=== PATIENT | female | born 1950 | race Caucasian/White ===

== ENCOUNTER 2019-11-14 08:44 | Outpatient (CLI) | payer OTHER, SELFPAY ==
--- NOTE | ~2019-11-14 | MM_ITS ---
EXAMINATION: MM screening [facility] BI w antoine HISTORY: Screening mammogram TECHNIQUE: Craniocaudal and mediolateral oblique 3-D tomosynthesis images were obtained and synthetic 2-D images were generated. CAD analysis was submitted and interpreted. COMPARISON: Comparison to multiple prior studies sequentially, with oldest reviewed study dated 10/14. BREAST PARENCHYMAL COMPOSITION: There are scattered areas of fibroglandular density. FINDINGS: There is no evidence of suspicious mass, calcification, or architectural distortion to sugg est malignancy in either breast. There has been no suspicious interval change. IMPRESSION: 1. No mammographic evidence of malignancy. 2. Recommend routine screening mammography in one year. BI-RADS Category 1: Negative Reviewed, dictated and finalized at location A. LE OPERATOR
--- NOTE | ~2019-11-14 | DEXA_ITS ---
Bone Density Report Name: Maritza Bhatia Age: 69 Sex: Female Ethnicity: White Date of : 1950 Indication: osteopenia; prior fracture; cancer; asthma or emphysema; hysterectomy; Referring Provider: Klarissa Guadarrama Study: Bone densitometry was performed. Exam Date: November 14, 2019 Accession number: [id number] Bone Density: Region BMD T-score Z-score Classification AP Spine (L1-L4) 0.835 -1.9 0.0 Osteopenia Femoral Neck (Left) 0.683 -1.5 0.2 Osteopenia Total Hip (Left) 0.984 0.3 1.7 Normal Total Hip Bilateral Avg 0.954 0.1 1.5 Normal Femoral Neck (Right) 0.691 -1.4 0.2 Osteopenia Total Hip (Right) 0.922 -0.2 1.2 Normal World Health Organization criteria for BMD impression classify patients as: Normal (T-score at or above -1.0), Osteopenia (T-score between -1.0 and -2.5), or Osteoporosis (T-score at or below -2.5). 10-year Fracture Risk(1): Major Osteoporotic Fracture 15% Hip Fracture 1.8% Reported Risk Factors: [place] (), Neck BMD=0.683, BMI=28.6, previous fracture (1) FRAX(R) Version 3.08. Fracture probability calculated for an untreated patient. Fracture probability may be lower if the patient has received treatment. Previous Exams: Region Exam Age BMD T-score BMD Change BMD Change Date g/cm2 vs Baseline vs Previous AP Spine(L1-L4) 11/14/2019 69 0.835 -1.9 -0.262(-23.9%) -0.070(-7.7%)* 10/14/2014 64 0.905 -1.3 -0.192(-17.5%) -0.018(-2.0%)# 09/18/2012 62 0.923 -1.1 -0.174(-15.8%) -0.080(-8.0%)# 08/31/2010 60 1.003 -0.4 -0.094(-8.6%)* -0.020(-1.9%) 08/07/2007 57 1.022 -0.2 -0.074(-6.8%)* -0.074(-6.8%)* 06/28/2005 55 1.097 0.5 Total Hip(Left) 11/14/2019 69 0.984 0.3 -0.061(-5.9%)# 0.013(1.3%) 10/14/2014 64 0.971 0.2 -0.074(-7.1%)# 0.031(3.4%)# 09/18/2012 62 0.940 0.0 -0.106(-10.1%) -0.029(-3.0%)# 08/31/2010 60 0.969 0.2 -0.077(-7.3%)* -0.012(-1.2%) 08/07/2007 57 0.980 0.3 -0.065(-6.2%)* -0.065(-6.2%)* 06/28/2005 55 1.045 0.8 Total Hip(Right) 11/14/2019 69 0.922 -0.2 -0.141(-13.3%) -0.029(-3.1%)* 10/14/2014 64 0.952 0.1 -0.112(-10.5%) 0.028(3.0%)# 09/18/2012 62 0.924 -0.2 -0.140(-13.2%) -0.050(-5.1%)# 08/31/2010 60 0.973 0.3 -0.090(-8.5%)* -0.028(-2.8%)* 08/07/2007 57 1.001 0.5 -0.063(-5.9%)* -0.063(-5.9%)* 06/28/2005 55 1.064 1.0 *Denotes significance at 95% confidence level, LSC for AP Spine = 0.022 g/cm2, LSC for Total Hip = 0.027 g/cm2 Clinical Information Provided by Patient:
== END 2019-11-14 08:45 | disposition home or self-care (01) ==
PROVIDERS: PCP Family Medicine; Visit Provider Student in an Organized Health Care Education/Training Program
DX: Z12.31 Encounter for screening mammogram for malignant neoplasm of breast (principal); Z78.0 Asymptomatic menopausal state; M85.88 Other specified disorders of bone density and structure, other site; M85.852 Other specified disorders of bone density and structure, left thigh; M85.851 Other specified disorders of bone density and structure, right thigh
CPT/HCPCS: 77063; 77067; 77080

== ENCOUNTER 2020-07-10 07:18 | Outpatient (CLI) | payer OTHER, SELFPAY ==
[2020-07-10 19:02] LABS: SARS-CoV-2 RNA PCR Negative
== END 2020-07-10 07:19 | disposition home or self-care (01) ==
LOC: ANHCOVIDDT 07:19
PROVIDERS: PCP Family Medicine; Visit Provider Internal Medicine Gastroenterology
DX: Z01.812 Encounter for preprocedural laboratory examination (principal); Z20.828 Contact with and (suspected) exposure to other viral communicable diseases
CPT/HCPCS: 87635; C9803; U0003

== ENCOUNTER 2020-07-12 01:23 | Day surgery (SDC) | payer OTHER, SELFPAY ==
[2020-07-04 15:03] VITALS: BMI 27.6
[2020-07-12 09:08] VITALS: BP 166/77; PULSE 85; RESP 16; TEMP 37.1; O2SAT 100
[2020-07-12] MEDS: LACTATED RINGERS 1,000 ML 150 ML IV CONT (09:11)
[2020-07-12 09:15] LABS: Glucose Point of Care 174 (65-105)
--- NOTE | 2020-07-12 10:01 | WPDGICN ---
Assessment and Plan Assessment and plan (1) History of colon cancer: Code(s): Z85.038 - Personal history of other malignant neoplasm of large intestine Status: Acute Assessment and Plan: patient has a history of colon cancer resected 2012. Patient presents today for surveillance examination. This required at 3 a year intervals at this time. GI Consult Note Consult date/time: 07/12/20 10:01 HPI: Maritza Bhatia is a 70 year old female Seen in evaluation at the request of Dr. Roberson. patient has a history of colon cancer resected in 2012. patient currently doing well with normal weight appetite bowel movements. She denies any bleeding. Follow-up colonoscopy 2017 revealed several hyperplastic colon polyps. Patient presents today for follow-up examination. Her current weight of a tight bowel movements are normal. Review of Systems Review of Systems: All systems reviewed & are unremarkable except as noted in HPI and below PMFSH Past Medical History Medical History Advance care planning Asthma Cancer, colon 2012 Cataracts, bilateral 2017 Diabetes Dyslipidemia Environmental allergies History of colon cancer HTN (hypertension) Hypokalemia Surgical History Surgical History (Updated 06/28/20 @ 11:05 by Calixto Roberson MD) H/O hernia repair incisional hernia 2014 History of partial colectomy 06/2013 History of tonsillectomy Hx of cataract surgery Hx of hysterectomy 1996 Family History Family History Mother Family history of Parkinson's disease, Onset Age: 72 Cerebrovascular accident Father Carcinoma of colon, Onset Age: 40 Family history of primary malignant neoplasm of liver, Onset Age: 40 Other Family history of lymphoma Social History Social History Smoking status: Never smoker Second hand tobacco smoke exposure: No Alcohol intake: never Living arrangements: with family Gender identity (if verbalized by the patient): Female Spiritual care concerns: No Meds Home Medications and Allergies Home Medications Medication Instructions Recorded Confirmed Type ascorbic acid (vitamin C) 500 mg 500 mg PO DAILY 08/26/19 07/04/20 History tablet,extended release calcium carbonate 600 mg calcium 600 mg PO DAILY 08/26/19 07/04/20 History (1,500 mg) tablet cod liver oil 1 cap PO DAILY 08/26/19 07/04/20 History cyanocobalamin (vitamin B-12) 500 500 mcg PO DAILY 08/26/19 07/04/20 History mcg tablet omega-3 fatty acids 1,000 mg 1,000 mg PO DAILY 08/26/19 07/04/20 History capsule blood sugar diagnostic #100 each 10/17/19 06/28/20 Rx blood-glucose meter #1 each 10/17/19 06/28/20 Rx lancets 33 gauge #100 each 10/17/19 06/28/20 Rx quinapril 40 mg tablet 40 mg PO DAILY #90 tablet 02/06/20 07/04/20 Rx escitalopram oxalate 10 mg tablet 10 mg PO DAILY #90 tablet 02/29/20 07/04/20 Rx simvastatin 20 mg tablet 20 mg PO DAILY #90 tablet 03/08/20 07/04/20 Rx fluticasone 250 mcg-salmeterol 50 1 inhalation INHALATION BID #90 04/10/20 07/04/20 Rx mcg/dose blistr powdr for each inhalation glipizide 2.5 mg tablet, extended 2.5 mg PO DAILY #90 tablet 06/18/20 07/04/20 Rx release 24 hr metformin 1,000 mg tablet 1,000 mg PO BID #180 tablet 06/18/20 07/04/20 Rx albuterol sulfate 90 mcg/actuation 2 inh INHALATION Q4H #18 g 06/28/20 07/04/20 Rx aerosol inhaler diltiazem HCl 60 mg 60 mg PO BID cap 06/28/20 07/04/20 History capsule,extended release 12 hr hydrochlorothiazide 25 mg tablet 25 mg PO DAILY #90 tablet 06/28/20 07/04/20 Rx potassium chloride 20 mEq 20 meq PO DAILY tablet 06/28/20 07/04/20 History tablet,extended release montelukast 10 mg tablet 10 mg PO DAILY #90 tablet 07/10/20 Rx Allergies Allergy/AdvReac Type Severity Reaction Status Date / Time adhesive Al
--- NOTE | 2020-07-12 10:03 | WPDANESEPPF ---
Anes - Initial Pre Proc Eval Procedure: Operation Date: 07/12/20 10:00 Proposed Procedures p Screening Colonoscopy - Ar Gao MD Date/Time: 07/12/20 10:03 Surgeon: Ar Gao MD Pre Op Diagnosis: hx colon CA Patient Data Age: 70 Gender: F Height: 5 ft 4 in Weight: 72.6 kg Last Vital Signs Temp 98.8 F 07/12/20 09:08 Pulse 85 07/12/20 09:08 Resp 16 07/12/20 09:08 BP 166/77 H 07/12/20 09:08 Pulse Ox 100 07/12/20 09:08 Allergies Allergy/AdvReac Type Severity Reaction Status Date / Time adhesive Allergy Intermediate SURGICAL Verified 07/12/20 09:07 TAPE Cephalosporins Allergy Intermediate RASH AND Verified 07/12/20 09:07 ITCHING clarithromycin Allergy Intermediate RASH AND Verified 07/12/20 09:07 ITCHING doxycycline Allergy Intermediate RASH Verified 07/12/20 09:07 erythromycin base Allergy Intermediate RASH AND Verified 07/12/20 09:07 ITCHING Quinolones Allergy Intermediate RASH AND Verified 07/12/20 09:07 ITCHING ciprofloxacin Allergy Unknown RASH/ITICHI Verified 07/12/20 09:07 NG Penicillins Allergy Unknown HIVES Verified 07/12/20 09:07 tetracycline Allergy Unknown RASH Verified 07/12/20 09:07 RESPIRATIORY ISSUES ibuprofen Allergy Rash Verified 07/12/20 09:07 SWEET POTATOES Allergy Intermediate HIVES Uncoded 07/04/20 14:57 CEPHALEXIN MONOHYDRATE AdvReac Unknown NAUSEA/VOMI Uncoded 07/04/20 14:57 TING pomegranate juice AdvReac Unknown Unknown Uncoded 07/04/20 14:57 Soy Milk AdvReac Unknown COUNTERACTS Uncoded 07/04/20 14:57 WITH ASTHMA MEDICINE Home Medications Medication Instructions Recorded Confirmed Type ascorbic acid (vitamin C) 500 mg 500 mg PO DAILY 08/26/19 07/04/20 History tablet,extended release calcium carbonate 600 mg calcium 600 mg PO DAILY 08/26/19 07/04/20 History (1,500 mg) tablet cod liver oil 1 cap PO DAILY 08/26/19 07/04/20 History cyanocobalamin (vitamin B-12) 500 500 mcg PO DAILY 08/26/19 07/04/20 History mcg tablet omega-3 fatty acids 1,000 mg 1,000 mg PO DAILY 08/26/19 07/04/20 History capsule blood sugar diagnostic #100 each 10/17/19 06/28/20 Rx blood-glucose meter #1 each 10/17/19 06/28/20 Rx lancets 33 gauge #100 each 10/17/19 06/28/20 Rx quinapril 40 mg tablet 40 mg PO DAILY #90 tablet 02/06/20 07/04/20 Rx escitalopram oxalate 10 mg tablet 10 mg PO DAILY #90 tablet 02/29/20 07/04/20 Rx simvastatin 20 mg tablet 20 mg PO DAILY #90 tablet 03/08/20 07/04/20 Rx fluticasone 250 mcg-salmeterol 50 1 inhalation INHALATION BID #90 04/10/20 07/04/20 Rx mcg/dose blistr powdr for each inhalation glipizide 2.5 mg tablet, extended 2.5 mg PO DAILY #90 tablet 06/18/20 07/04/20 Rx release 24 hr metformin 1,000 mg tablet 1,000 mg PO BID #180 tablet 06/18/20 07/04/20 Rx albuterol sulfate 90 mcg/actuation 2 inh INHALATION Q4H #18 g 06/28/20 07/04/20 Rx aerosol inhaler diltiazem HCl 60 mg 60 mg PO BID cap 06/28/20 07/04/20 History capsule,extended release 12 hr hydrochlorothiazide 25 mg tablet 25 mg PO DAILY #90 tablet 06/28/20 07/04/20 Rx potassium chloride 20 mEq 20 meq PO DAILY tablet 06/28/20 07/04/20 History tablet,extended release montelukast 10 mg tablet 10 mg PO DAILY #90 tablet 07/10/20 Rx Laboratory Tests 07/12/20 09:12 POC Capillary Glucose 174 mg/dl H mg/dl (65-105) Patient hx anesthesia problems: none Family hx anesthesia problems: none PMFSH Past Medical History Medical History Advance care planning Asthma Cancer, colon 2013 Cataracts, bilateral 2018 Diabetes Dyslipidemia Environmental allergies History of colon cancer HTN (hypertension) Hypokalemia Surgical History Surgical History (Updated 06/28/20 @ 11:05 by Calixto Roberson MD) H/O hernia repair incisional hernia 2014 History of partial colectomy 06/2013 History of tonsillectomy Hx of cataract surgery Hx of
[2020-07-12 10:55] VITALS: BP 114/67; PULSE 83; RESP 16; O2SAT 97
[2020-07-12 11:05] VITALS: BP 127/71; PULSE 79; RESP 16; O2SAT 97
[2020-07-12 11:15] VITALS: BP 142/76; PULSE 71; RESP 18; O2SAT 100
== END 2020-07-12 11:15 | disposition home or self-care (01) ==
PROVIDERS: PCP Family Medicine; Visit Provider Internal Medicine Gastroenterology
PROC: 0DJD8ZZ Inspection of Lower Intestinal Tract, Via Natural or Artificial Opening Endoscopic (ICD-10-PCS; CPT 45378; principal; 2020-07-12 10:00)
DX: Z12.11 Encounter for screening for malignant neoplasm of colon (principal); D12.8 Benign neoplasm of rectum; J45.909 Unspecified asthma, uncomplicated; E78.5 Hyperlipidemia, unspecified; I10 Essential (primary) hypertension; Z90.49 Acquired absence of other specified parts of digestive tract; K64.8 Other hemorrhoids
CPT/HCPCS: 45385; 88305; J2704; J7120

== ENCOUNTER 2020-07-16 13:49 | Outpatient (CLI) | payer OTHER, SELFPAY ==
--- NOTE | 2020-07-16 14:21 | ECHO_ITS ---
Patient Info Name: Maritza Bhatia Age: 70 years : 1950 Gender: Female Ht: 64 in Wt: 160 lbs BSA: 1.83 m2 HR: 88 bpm BP: 157 / 96 mmHg Heart Rhythm: Sinus Rhythm Technical Quality: Fair Exam Date: 07/16/2020 2:55 PM Exam Location: [facility] Patient Status: Outpatient Admit Date: 07/16/2020 Staff Ordering Physician: Calixto Roberson MD Concrete Crusher Loader Operator: Javier Gutierrez, MERLY, RT Attending Provider: Calixto Roberson MD Exam Type: CA echo dop color flow w con Study Info Indications R01.1 - Cardiac murmur, unspecified Complete two-dimensional, color flow and Doppler transthoracic echocardiogram is performed. Strain analysis performed. History/Risk Factors Murmur. Summary 1. Complete two-dimensional, color flow and Doppler transthoracic echocardiogram is performed. 2. Left ventricular chamber dimension is normal. 3. Left ventricular systolic function is normal, estimated at 60-65%. 4. The left ventricular diastolic function is grade I diastolic dysfunction. 5. E/e' 9 is minimally elevated. 6. Global longitudinal strain is normal at -18.3%. 7. Left atrial chamber dimension is mildly enlarged. 8. There is moderate aortic valve sclerosis. 9. There is mild aortic valve stenosis with a peak velocity of 208.77 cm/s, mean gradient of 9 mmHg, and aortic valve area of 1.64 cm2. 10. The mitral valve has mildly calcified annulus. Left Ventricle E/e' 9 is minimally elevated. Global longitudinal strain is normal at -18.3%. Left ventricular chamber dimension is normal. Left ventricular systolic function is normal, estimated at 60-65%. The left ventricular diastolic function is grade I diastolic dysfunction. Right Ventricle Right ventricular chamber dimension is normal. Right ventricular systolic function is normal. Left Atria Left atrial chamber dimension is mildly enlarged. Right Atria Right atrial chamber dimension is normal. Aortic Valve The aortic valve is trileaflet. There is moderate aortic valve sclerosis. There is mild aortic valve stenosis with a peak velocity of 208.77 cm/s, mean gradient of 9 mmHg, and aortic valve area of 1.64 cm2. There is no aortic valve regurgitation. Pulmonic Valve There is no pulmonic regurgitation. Mitral Valve The mitral valve has mildly calcified annulus. There is no mitral valve stenosis. There is no mitral valve regurgitation. Tricuspid Valve There is no tricuspid valve regurgitation. Pericardium/Pleural There is no pericardial effusion. Inferior Vena Cava Normal inferior vena cava with >50% collapse upon inspiration consistent with normal right atrial pressure, 5 mmHg. Aorta The aortic root size at the sinus of Valsalva is normal. Left Ventricular Outflow Tract Name Value Normal LVOT 2D LVOT Diameter 2.04 cm LVOT Doppler LVOT Peak Gradient 4 mmHg LVOT Mean Gradient 2 mmHg LVOT VTI 21.38 cm LVOT VTI/AV VTI Ratio 0.50 LVOT Stroke Volume 69.71 ml LVOT CO
== END 2020-07-16 13:50 | disposition home or self-care (01) ==
PROVIDERS: PCP Family Medicine; Visit Provider Family Medicine
DX: R01.1 Cardiac murmur, unspecified (principal); I35.1 Nonrheumatic aortic (valve) insufficiency
CPT/HCPCS: 93306

== ENCOUNTER 2020-11-16 09:54 | Outpatient (CLI) | payer OTHER, SELFPAY ==
--- NOTE | ~2020-11-16 | MM_ITS ---
EXAMINATION: MM screening [facility] BI w antoine HISTORY: Screening mammogram TECHNIQUE: Craniocaudal and mediolateral oblique 3-D tomosynthesis images were obtained and synthetic 2-D images were generated. CAD analysis was submitted and interpreted. COMPARISON: Prior mammograms dating back to 10/14/2014 BREAST PARENCHYMAL COMPOSITION: There are scattered areas of fibroglandular density. FINDINGS: There is no evidence of suspicious mass, calcification, or architectural distortion to sugg est malignancy in either breast. There has been no suspicious interval change. IMPRESSION: 1. No mammographic evidence of malignancy. 2. Recommend routine screening mammography in one year. BI-RADS Category 1: Negative Reviewed, dictated and finalized at location A. BENDER
== END 2020-11-16 09:55 | disposition home or self-care (01) ==
LOC: ANHIMG 09:56
PROVIDERS: PCP Family Medicine; Visit Provider Student in an Organized Health Care Education/Training Program
DX: Z12.31 Encounter for screening mammogram for malignant neoplasm of breast (principal)
CPT/HCPCS: 77063; 77067

== ENCOUNTER 2021-03-26 13:03 | Outpatient (CLI) | payer OTHER, SELFPAY ==
--- NOTE | ~2021-03-26 | XR_ITS ---
XR chest 2V DATE: 03/26/2021 13:21 INDICATION: Cough TECHNIQUE: PA and lateral views COMPARISON: 09/17/2016 PA and lateral views FINDINGS: Normal heart size. There is aortic arch calcification. No hilar or mediastinal enlargemen t. No pulmonary infiltrate or consolidation, pulmonary vascular congestion or pleural effusion or pn eumothorax. Osteopenia. Mild degenerative change of the thoracic spine. IMPRESSION: No active cardiopulmonary disease Reviewed, dictated and finalized at location A.
== END 2021-03-26 13:04 | disposition home or self-care (01) ==
PROVIDERS: PCP Family Medicine; Visit Provider Otolaryngology
DX: R05 Cough (principal)
CPT/HCPCS: 71046

== ENCOUNTER 2021-12-05 14:11 | Outpatient (CLI) | payer OTHER, SELFPAY ==
--- NOTE | ~2021-12-05 | XR_ITS ---
EXAMINATION: XR chest 2V 12/05/2021 14:24 INDICATION: Cough and sore throat. Asthma. PROCEDURE: 2 view chest COMPARISON: Comparison to multiple prior studies sequentially, with oldest reviewed study dated 09/07/2005. FINDINGS: The lungs are clear. The cardiomediastinal silhouette is within normal limits. There are no pleural effusions. There is no pneumothorax suspected. IMPRESSION: 1: NO ACUTE CARDIOPULMONARY DISEASE. Reviewed, dictated and finalized at location B.
== END 2021-12-05 14:12 | disposition home or self-care (01) ==
LOC: ANHIMG 14:13
PROVIDERS: PCP Family Medicine; Visit Provider Nurse Practitioner Family
DX: R05.9 Cough, unspecified (principal); J02.9 Acute pharyngitis, unspecified; J45.909 Unspecified asthma, uncomplicated
CPT/HCPCS: 71046

== ENCOUNTER 2021-12-06 18:19 | Emergency (ER) | payer OTHER, SELFPAY ==
[2021-12-06] VITALS (15 sets, daily range): BP systolic 146–171; BP diastolic 66–89; PULSE 76–101; RESP 14–20; TEMP 36.4–36.5; O2SAT 97–100
--- NOTE | ~2021-12-06 | XR_ITS ---
XR chest 2V DATE: 12/06/2021 18:46 INDICATION: Cough, shortness of breath, congestion for one week. History of asthma and hypertension. TECHNIQUE: PA and lateral views COMPARISON: 12/05/2021 2 view chest FINDINGS: The patient is rotated. Heart size appears normal. No hilar or mediastinal enlargement is evident. The lungs are clear of inf iltrate or consolidation. No pleural effusion or pulmonary vascular congestion or pneumothorax. Osteopenia. IMPRESSION: No active cardiopulmonary disease or significant change since 12/05/2021 Reviewed, dictated and finalized at location A. IMPRESSION: No active cardiopulmonary disease or significant change since 2021
--- NOTE | 2021-12-06 18:32 | ECG_ITS ---
Measurements Intervals [place] Rate: 86 P: 39 RI: 134 QRS: 15 QRSD: 82 T: 46 QT: 362 QTc: 433 Interpretive Statements SINUS RHYTHM WITH FREQUENT SUPRAVENTRICULAR PREMATURE COMPLEXES ABNORMAL ECG NO PREVIOUS ECG AVAILABLE FOR COMPARISON Electronically Signed On 12-07-2021 9:24:22 CDT by Jesus Cohen M.D.
--- NOTE | 2021-12-06 18:39 | PC.NURSE ---
pt to Xray at this time.
[2021-12-06 19:02] LABS: Basophils Percent Auto 0.1 % (0.2-1.2); Hematocrit 37.6 % (37.0-47.0); Hemoglobin 11.5 g/dL (12.0-15.0); Immature Granulocyte Absolute 0.12 K/mm3 (0.00-0.031); Immature Granulocyte Percent A 1.4 % (0-0.5); Lymphocytes Absolute Auto 1.47 K/mm3 (0.9-3.2); Lymphocytes Percent Auto 17.2 % (18.3-44.2); Mean Corpuscular HGB Conc 30.6 g/dl (32-36); Mean Corpuscular Hemoglobin 23.3 pg (26-34); Mean Corpuscular Volume 76.3 fl (80-100); Mean Platelet Volume 9.4 fl (7.4-10.4); Monocytes Absolute Auto 0.9 K/mm3 (0.1-0.6); Monocytes Percent Auto 10.1 % (2.6-8.5); Neutrophils Absolute Auto 6.1 K/mm3 (1.3-6.7); Neutrophils Percent Auto 71.2 % (45.5-73.1); Platelet Count Result 343 k/mm3 (150-375); Red Blood Count 4.93 M/mm3 (4.2-5.4); Red Cell Distribution Width 15.5 % (11.5-14.5); White Blood Count 8.6 K/mm3 (4.5-10.0)
[2021-12-06 19:21] LABS: Alanine Aminotransferase 60 U/L (4-35); Albumin Level 4.7 g/dL (3.5-5.1); Alkaline Phosphatase 50 U/L (38-126); Anion Gap 10 mmol/L (8-16); Aspartate Amino Transferase 46 U/L (14-36); Bilirubin,Total < 0.1 mg/dL (0.2-1.3); Blood Urea Nitrogen 17 mg/dL (7-17); Calcium 10.3 mg/dL (8.4-10.2); Carbon Dioxide 26 mmol/L (22-30); Chloride 94 mmol/L (98-107); Estimated CRCL calculation 51 ml/min; Estimated Glomerular Filt Rate > 60; Glucose 279 mg/dL (65-110); Potassium 4.4 mmol/L (3.4-5.0); Sodium 130 mmol/L (137-145)
--- NOTE | 2021-12-06 19:28 | ED.GENADULT ---
HPI - General Adult General Chief complaint: Shortness of Breath/Dyspnea Stated complaint: sob Time Seen by Provider: 12/06/21 19:05 Source: patient History of Present Illness HPI narrative: 71-year-old female presented [facility] for evaluation of cough and shortness of breath that has been ongoing for greater than 1 week. Patient states she went out with friends last Thursday. Patient began having symptoms on Thursday. Patient did have follow-up with her primary care physician and was ultimately started on antibiotics/Levaquin on Thursday. Patient has been taking the antibiotics for approximately 6 days. Patient presents complaining of persistent cough and shortness of breath. Patient reports she is vaccinated against COVID. Patient did have a Covid test that was negative. Patient reports that one of her friends that she went to lunch with also has pneumonia and is currently admitted. Patient denies smoking. Patient is not on oxygen at home. Related Data Home Medications Medication Instructions Recorded Confirmed ascorbic acid (vitamin C) 500 mg 500 mg PO DAILY 08/26/19 12/02/21 tablet,extended release calcium carbonate 600 mg calcium 600 mg PO DAILY 08/26/19 12/02/21 (1,500 mg) tablet cod liver oil 1 cap PO DAILY 08/26/19 12/02/21 cyanocobalamin (vitamin B-12) 500 500 mcg PO DAILY 08/26/19 12/02/21 mcg tablet omega-3 fatty acids 1,000 mg 1,000 mg PO DAILY 08/26/19 12/02/21 capsule primidone 50 mg tablet 50 mg PO BID tablet 06/26/21 12/02/21 simvastatin 20 mg tablet 20 mg PO QHS tablet 06/26/21 12/02/21 gabapentin 300 mg capsule 300 mg PO QHS 09/03/21 12/02/21 Allergies Allergy/AdvReac Type Severity Reaction Status Date / Time adhesive Allergy Intermediate SURGICAL Verified 12/02/21 13:02 TAPE Cephalosporins Allergy Intermediate RASH AND Verified 12/02/21 13:02 ITCHING clarithromycin Allergy Intermediate RASH AND Verified 12/02/21 13:02 ITCHING doxycycline Allergy Intermediate RASH Verified 12/02/21 13:02 erythromycin base Allergy Intermediate RASH AND Verified 12/02/21 13:02 ITCHING ciprofloxacin Allergy Unknown RASH/ITICHI Verified 12/02/21 13:02 NG Penicillins Allergy Unknown HIVES Verified 12/02/21 13:02 tetracycline Allergy Unknown RASH Verified 12/02/21 13:02 RESPIRATIORY ISSUES ibuprofen Allergy Rash Verified 12/02/21 13:02 SWEET POTATOES Allergy Intermediate HIVES Uncoded 10/30/21 10:59 CEPHALEXIN MONOHYDRATE AdvReac Unknown NAUSEA/VOMI Uncoded 10/30/21 10:59 TING pomegranate juice AdvReac Unknown Unknown Uncoded 10/30/21 10:59 Soy Milk AdvReac Unknown COUNTERACTS Uncoded 10/30/21 10:59 WITH ASTHMA MEDICINE Review of Systems Review of Systems: CONSTITUTIONAL: Denies fever, chills, or sweats. EYES: Denies visual changes, redness, or discharge. ENT: Denies rhinorrhea, congestion, sore throat, or otalgia. CARDIOVASCULAR: Denies chest pain, palpitations, or edema. RESPIRATORY: reports cough and dyspnea. GASTROINTESTINAL: Denies abdominal pain, nausea, vomiting, or diarrhea. GENITOURINARY: Denies dysuria or hematuria. SKIN: Denies rash or itching. MUSCULOSKELETAL: Denies back pain, joint pain, or myalgia. NEUROLOGIC: Denies headache, numbness, or weakness. [facility] Past Medical History Medical History Anxiety Asthma Cancer, colon 2013 Cataracts, bilateral 2018 Diabetes Diabetic autonomic neuropathy Dyslipidemia Environmental allergies History of colon cancer HTN (hypertension) Hypokalemia Mild aortic stenosis Osteopenia Surgical History Surgical History H/O hernia repair incisional hernia 2014 History of partial colectomy 06/2013 History of tonsillectomy Hx of cataract surgery Hx of hysterectomy 1996 Family History Family History Mother Family
[2021-12-06] MEDS: ALBUTEROL SULFATE NEB 2.5 MG/0.5 ML INH 5 MG INHALATION (19:33)
[2021-12-06 21:22] LABS: SARS-CoV-2 RNA PCR Negative
[2021-12-07 04:06] LABS: Influenza A QL RT-PCR Negative (Negative); Influenza B QL RT-PCR Negative (Negative)
== END 2021-12-06 22:06 | disposition home or self-care (01) ==
PROVIDERS: Emergency Medicine; Emergency Provider Emergency Medicine; PCP Family Medicine
DX: R05.9 Cough, unspecified (principal); Z20.822 Contact with and (suspected) exposure to COVID-19; E11.43 Type 2 diabetes mellitus with diabetic autonomic (poly)neuropathy; J45.909 Unspecified asthma, uncomplicated; E78.5 Hyperlipidemia, unspecified; I10 Essential (primary) hypertension; I35.0 Nonrheumatic aortic (valve) stenosis; M85.80 Other specified disorders of bone density and structure, unspecified site; Z79.84 Long term (current) use of oral hypoglycemic drugs; Z85.038 Personal history of other malignant neoplasm of large intestine; Z90.49 Acquired absence of other specified parts of digestive tract; Z98.42 Cataract extraction status, left eye; Z98.41 Cataract extraction status, right eye; I49.1 Atrial premature depolarization
CPT/HCPCS: 36415; 71046; 80053; 85025; 87502; 87804; 93005; 94640; 99284; A9270; C9803; U0003; U0005

== ENCOUNTER 2021-12-24 11:04 | Outpatient (CLI) | payer OTHER, SELFPAY ==
[2021-12-24 11:45] LABS: Alanine Aminotransferase 37 U/L (4-35); Alkaline Phosphatase 48 U/L (38-126); Anion Gap 5 mmol/L (8-16); Aspartate Amino Transferase 31 U/L (14-36); Bilirubin,Total 0.3 mg/dL (0.2-1.3); Blood Urea Nitrogen 11 mg/dL (7-17); Calcium 9.3 mg/dL (8.4-10.2); Carbon Dioxide 25 mmol/L (22-30); Chloride 103 mmol/L (98-107); Estimated Glomerular Filt Rate > 60; Glucose 185 mg/dL (65-110); Potassium 4.2 mmol/L (3.4-5.0); Sodium 133 mmol/L (137-145)
[2021-12-24 11:54] LABS: NT Pro B Type Natriuretic Pept 119 pg/mL (5-100)
== END 2021-12-24 11:05 | disposition home or self-care (01) ==
PROVIDERS: PCP Family Medicine; Visit Provider Nurse Practitioner Family
DX: R06.02 Shortness of breath (principal); M79.89 Other specified soft tissue disorders; I10 Essential (primary) hypertension
CPT/HCPCS: 36415; 80053; 83880

== ENCOUNTER 2022-03-14 12:35 | Outpatient (CLI) | payer OTHER, SELFPAY ==
--- NOTE | 2022-03-15 06:35 | WPDPFTINT ---
PFT Procedure Performed PFT Procedure Performed Spirometry with Pre/Post Bronchodilator Plethysmography (Lung Vol) Diffusing Cap (DLCO) Flow Vol Loop PFT Interpretation This is a pulmonary function test with pre and post-bronchodilator spirometry, plethysmography and diffusing capacity. The test was performed and results interpreted in accordance with the 2019 and 2005 ATS/ERS Task Force guidelines respectively using the Global Lung Function Initiative-2012 reference equations. Patient demonstrated good effort and cooperation. Reproducibility criteria were met. The quality of the pre bronchodilator spirometry maneuver was Grade B and post bronchodilator spirometry maneuver was Grade B. The patient was unable to provide acceptable and reproducible plethysmography results despite for temps and good coaching. Findings: Spirometry: Contour the inspiratory and expiratory flow tracing are normal. The pre bronchodilator FVC is 3.14 L, 108% predicted. The pre bronchodilator FEV1 is 2.58 L, 115% predicted. The pre bronchodilator FEV1: FVC ratio is 82%. The post bronchodilator FVC is 3.14 L, representing no change. The post bronchodilator FEV1 is 2.58 L, representing no change. The post bronchodilator FEV1: FVC ratio was 82%. Plethysmography: The total lung capacity is 5.81 L, 114% predicted. The functional residual capacity is 0.37 L, 13% predicted. The residual volume is 0.29 L, 13% predicted. Diffusing capacity: The diffusion capacity unadjusted for hemoglobin and carboxyhemoglobin was 17.4, 85% predicted. The diffusing capacity adjusted for alveolar volume is 3.69, 86% predicted. Impression: The spirometry is normal without evidence of an obstructive abnormality. There is no significant improvement after inhaling a single dose of albuterol. The lung volumes were not reproducible. Interpreting the best available data demonstrates a normal total lung capacity with decreased functional residual capacity and residual volume. This is an abnormal but nonspecific lung volume pattern. The diffusing capacity is normal. There are no prior studies for comparison
== END 2022-03-14 12:36 | disposition home or self-care (01) ==
LOC: ANHPFT 12:35
PROVIDERS: PCP Family Medicine; Visit Provider Internal Medicine Pulmonary Disease
DX: R06.00 Dyspnea, unspecified (principal)
CPT/HCPCS: 94060; 94726; 94729

== ENCOUNTER 2022-06-02 14:50 | Outpatient (CLI) | payer OTHER, SELFPAY ==
--- NOTE | ~2022-06-02 | DEXA_ITS ---
Bone Density Report Name: LIZABETH GAINES Age: 72 Sex: Female Ethnicity: White Date of : 1950 Indication: osteopenia; height loss; inflammatory bowel disease; cancer; asthma or emphysema; hysterectomy; postmenopausal Referring Provider: LIGIA PICKENS Study: Bone densitometry was performed. Exam Date: June 02, 2022 Accession number: [id number] Bone Density: Region BMD T-score Z-score Classification AP Spine(L1-L4) 0.777 -2.5 -0.3 Osteoporosis Femoral Neck (Left) 0.612 -2.1 -0.3 Osteopenia Total Hip (Left) 0.936 0.0 1.5 Normal Femoral Neck (Right) 0.699 -1.3 0.5 Osteopenia Total Hip (Right) 0.923 -0.2 1.4 Normal Total Hip Mean 0.930 -0.1 1.5 Normal World Health Organization criteria for BMD impression classify patients as: Normal (T-score at or above -1.0), Osteopenia (T-score between -1.0 and -2.5), or Osteoporosis (T-score at or below -2.5). 10-year Fracture Risk: FRAX not reported because: Some T-score for Spine Total or Hip Total or Femoral Neck at or below -2.5 Previous Exams: Region Exam Age BMD T-score BMD Change BMD Change Date g/cm2 vs Baseline vs Previous AP Spine (L1-L4) 06/02/2022 72 0.777 -2.5 -0.146 (-15.8% -0.058 (-6.9%) 11/14/2019 69 0.835 -1.9 -0.088 (-9.5%) -0.070 (-7.7%) 10/14/2014 64 0.905 -1.3 -0.018 (-2.0%) -0.018 (-2.0%) 09/18/2012 62 0.923 -1.1 Total Hip(Left) 06/02/2022 72 0.936 0.0 -0.003 (-0.3%) -0.048 (-4.8%) 11/14/2019 69 0.984 0.3 0.044 (4.7%)# 0.013 (1.3%) 10/14/2014 64 0.971 0.2 0.031 (3.4%)# 0.031 (3.4%)# 09/18/2012 62 0.940 0.0 Total Hip(Right) 06/02/2022 72 0.923 -0.2 0.000 (0.0%)# 0.001 (0.1%) 11/14/2019 69 0.922 -0.2 -0.001 (-0.1%) -0.029 (-3.1%) 10/14/2014 64 0.952 0.1 0.028 (3.0%)# 0.028 (3.0%)# 09/18/2012 62 0.924 -0.2 *Denotes significance at 95% confidence level, LSC for AP Spine = 0.022 g/cm2, LSC for Total Hip = 0.027 g/cm2 # Denotes dissimilar scan types or analysis methods Clinical Information Provided by Patient: Has used the following medications: Vitamin D, Calcium Has the following medical conditions: Asthma or Emphysema, Cancer, Inflammatory bowel diseases, Hysterectomy Patient maximum height was 64 Menopause Age: 48 Drinks caffeinated beverages Onset of menses at age 13 Number of children 0 Impression: The patient has osteoporosis, based on the Total Spine T-score. The BMD for the To
--- NOTE | ~2022-06-02 | MM_ITS ---
EXAMINATION: MM screening daisy BI w antoine HISTORY: Screening mammogram TECHNIQUE: Craniocaudal and mediolateral oblique 3-D tomosynthesis images were obtained and synthetic 2-D images were generated. CAD analysis was submitted and interpreted. COMPARISON: 11/16/2020, 11/10/2019, 11/08/2018 bilateral screening mammogram examinations BREAST PARENCHYMAL COMPOSITION: There are scattered areas of fibroglandular density. FINDINGS: There is no evidence of suspicious mass, calcification, or architectural distortion to sugg est malignancy in either breast. There has been no suspicious interval change. IMPRESSION: 1. No mammographic evidence of malignancy. 2. Recommend routine screening mammography in one year. BI-RADS Category 1: Negative Reviewed, dictated and finalized at location A.
== END 2022-06-02 14:51 | disposition home or self-care (01) ==
PROVIDERS: PCP Family Medicine; Visit Provider Student in an Organized Health Care Education/Training Program
DX: Z12.31 Encounter for screening mammogram for malignant neoplasm of breast (principal); Z78.0 Asymptomatic menopausal state; M81.0 Age-related osteoporosis without current pathological fracture; M85.852 Other specified disorders of bone density and structure, left thigh; M85.851 Other specified disorders of bone density and structure, right thigh
CPT/HCPCS: 77063; 77067; 77080

== ENCOUNTER 2022-06-10 00:19 | Day surgery (SDC) | payer OTHER, SELFPAY ==
[2022-05-23 14:34] VITALS: BMI 29.5
--- NOTE | ~2022-06-10 | XR_ITS ---
SMALL BOWEL SERIES ONLY INDICATION: Iron deficiency anemia TECHNIQUE: Serial plain films and fluoroscopic spot films are performed following oral demonstration of thin barium. COMPARISON: None FINDINGS: Barium was followed sequentially through the small bowel. The mucosal pattern is unremarka ble. No evidence for stricture, polyp, diverticula or obstruction of flow of contrast. Transit time is normal. IMPRESSION: 1: Normal small bowel series. Reviewed, dictated and finalized at location A.
[2022-06-10 07:09] VITALS: BP 177/73; PULSE 83; RESP 16; TEMP 36.6; O2SAT 100
[2022-06-10] MEDS: LACTATED RINGERS 1,000 ML 150 ML IV CONT (07:16)
[2022-06-10 07:22] LABS: Glucose Point of Care 200 mg/dl (65-105)
--- NOTE | 2022-06-10 07:47 | WPDANESEPPF ---
Anes - Initial Pre Proc Eval Procedure: Operation Date: 06/10/22 08:30 Proposed Procedures p Esophagogastroduodenoscopy & Colonoscopy - Ar Gao MD Date/Time: 06/10/22 07:47 Surgeon: Ar Gao MD Pre Op Diagnosis: hx colon ca, KIMBERLY Patient Data Age: 72 Gender: F Height: 1.63 m Weight: 75 kg Last Vital Signs Temp 36.6 C 06/10/22 07:09 Pulse 83 06/10/22 07:09 Resp 16 06/10/22 07:09 BP 177/73 H 06/10/22 07:09 Pulse Ox 100 06/10/22 07:09 O2 Del Method Room Air 06/10/22 07:09 Allergies Allergy/AdvReac Type Severity Reaction Status Date / Time adhesive Allergy Intermediate SURGICAL Verified 06/10/22 07:07 TAPE Cephalosporins Allergy Intermediate RASH AND Verified 06/10/22 07:07 ITCHING clarithromycin Allergy Intermediate RASH AND Verified 06/10/22 07:07 ITCHING doxycycline Allergy Intermediate RASH Verified 06/10/22 07:07 erythromycin base Allergy Intermediate RASH AND Verified 06/10/22 07:07 ITCHING ciprofloxacin Allergy Unknown RASH/ITICHI Verified 06/10/22 07:07 NG Penicillins Allergy Unknown HIVES Verified 06/10/22 07:07 tetracycline Allergy Unknown RASH Verified 06/10/22 07:07 RESPIRATIORY ISSUES ibuprofen Allergy Rash Verified 06/10/22 07:07 scented soap Allergy Intermediate short of Uncoded 06/10/22 07:07 breath SWEET POTATOES Allergy Intermediate HIVES Uncoded 06/10/22 07:07 CEPHALEXIN MONOHYDRATE AdvReac Unknown NAUSEA/VOMI Uncoded 06/10/22 07:07 TING pomegranate juice AdvReac Unknown Unknown Uncoded 06/10/22 07:07 Soy Milk AdvReac Unknown COUNTERACTS Uncoded 06/10/22 07:07 WITH ASTHMA MEDICINE Home Medications Medication Instructions Recorded Confirmed Type ascorbic acid (vitamin C) 500 mg 500 mg PO DAILY 08/26/19 06/10/22 History tablet,extended release (Vitamin C With Marilu Hips) calcium carbonate 600 mg calcium 600 mg PO DAILY 08/26/19 06/10/22 History (1,500 mg) tablet (Calcium) cod liver oil 1 cap PO DAILY 08/26/19 06/10/22 History cyanocobalamin (vitamin B-12) 500 500 mcg PO DAILY 08/26/19 06/10/22 History mcg tablet (Vitamin B-12) omega-3 fatty acids 1,000 mg 1,000 mg PO DAILY 08/26/19 06/10/22 History capsule blood-glucose meter (Contour Meter #1 ea 10/17/19 06/10/22 Rx kit) lancets 33 gauge (BD Ultra Fine #100 ea 10/17/19 06/10/22 Rx Lancets) primidone 50 mg tablet 100 mg PO DAILY 06/26/21 06/10/22 History gabapentin 300 mg capsule 300 mg PO QHS 09/03/21 06/10/22 History fluticasone 250 mcg-salmeterol 50 1 inh inhalation BID #180 ea 12/09/21 06/10/22 Rx mcg/dose blistr powdr for inhalation (Ernestinaxela Inhub) montelukast 10 mg tablet 10 mg PO DAILY #90 tabs 12/09/21 06/10/22 Rx quinapril 40 mg tablet 40 mg PO DAILY #90 tabs 01/02/22 06/10/22 Rx omeprazole 20 mg capsule,delayed 20 mg PO DAILY #90 caps 03/26/22 06/10/22 Rx release potassium chloride 10 mEq 10 meq PO DAILY 03/26/22 06/10/22 History tablet,extended release(part/cryst) (Klor-Con M) simvastatin 20 mg tablet 20 mg PO QHS #90 tabs 04/07/22 06/10/22 Rx metformin 1,000 mg tablet 1,000 mg PO BID #180 tabs 04/09/22 06/10/22 Rx diltiazem HCl 120 mg 120 mg PO BID #180 caps 04/10/22 06/10/22 Rx capsule,extended release 12 hr escitalopram oxalate 10 mg tablet 10 mg PO DAILY #90 tabs 04/10/22 06/10/22 Rx glipizide 10 mg tablet, extended 10 mg PO DAILY #90 tabs 04/10/22 06/10/22 Rx release 24 hr hydrochlorothiazide 25 mg tablet 25 mg PO DAILY #90 tabs 04/10/22 06/10/22 Rx albuterol sulfate 90 mcg/actuation 2 puff inhalation Q4-6H PRN 05/20/22 06/10/22 Rx aerosol inhaler shortness of breath or wheezing #8.5 grams blood sugar diagnostic (Contour #100 ea 05/27/22 06/10/22 Rx Next Test Strips) Laboratory Tests 06/10/22 07:05 POC Capillary Glucose 200 mg/dl H mg/dl (65-105) Patient hx anesthesia problems: none Family hx anesthesia problems: none Results Review: All pr
--- NOTE | 2022-06-10 07:49 | PM.IMHP ---
H&P: HPI History of Present Illness Date/Time: 06/10/22 07:49 Chief Complaint: Iron deficiency anemia Narrative: this is a 72-year-old white female patient presents to the office because of iron deficiency anemia. She has a distant history of colon cancer resected 2012. Colonoscopy 2019 revealed an adenomatous colon polyp. Patient's laboratory parameters reveal microcytic anemia and iron deficient indices. Patient denies any obvious bleeding. She has no abdominal pain. She does have a nocturnal cough attributed to sinus drainage. She is followed by pulmonary service because of asthma. Patient presents today for colonoscopy because of iron deficiency anemia, history of colon polyp and history of colon cancer. Family history is noncontributory. Review of Systems Review of Systems: Review of systems noncontributory. [facility] Past Medical History Medical History Anxiety Asthma Cancer, colon 2013 Cataracts, bilateral 2018 Diabetes Diabetic peripheral neuropathy Dyslipidemia Environmental allergies GERD without esophagitis History of colon cancer HTN (hypertension) Hypokalemia Mild aortic stenosis Osteopenia Surgical History Surgical History H/O hernia repair incisional hernia 2014 History of partial colectomy 06/2013 History of tonsillectomy Hx of cataract surgery Hx of hysterectomy 1996 Family History Family History Mother Family history of Parkinson's disease, Onset Age: 72 Cerebrovascular accident Diabetes mellitus Hypertension Father Carcinoma of colon, Onset Age: 40 Family history of primary malignant neoplasm of liver, Onset Age: 40 Other Family history of lymphoma Social History Social History Smoking status: Never smoker Second hand tobacco smoke exposure: No Alcohol intake: never Substance use: never Substance use type: does not use Living arrangements: with family Gender identity (if verbalized by the patient): Female Spiritual care concerns: No Meds Home Medications and Allergies Home Medications Medication Instructions Recorded Confirmed Type ascorbic acid (vitamin C) 500 mg 500 mg PO DAILY 08/26/19 06/10/22 History tablet,extended release (Vitamin C With Marilu Hips) calcium carbonate 600 mg calcium 600 mg PO DAILY 08/26/19 06/10/22 History (1,500 mg) tablet (Calcium) cod liver oil 1 cap PO DAILY 08/26/19 06/10/22 History cyanocobalamin (vitamin B-12) 500 500 mcg PO DAILY 08/26/19 06/10/22 History mcg tablet (Vitamin B-12) omega-3 fatty acids 1,000 mg 1,000 mg PO DAILY 08/26/19 06/10/22 History capsule blood-glucose meter (Contour Meter #1 ea 10/17/19 06/10/22 Rx kit) lancets 33 gauge (BD Ultra Fine #100 ea 10/17/19 06/10/22 Rx Lancets) primidone 50 mg tablet 100 mg PO DAILY 06/26/21 06/10/22 History gabapentin 300 mg capsule 300 mg PO QHS 09/03/21 06/10/22 History fluticasone 250 mcg-salmeterol 50 1 inh inhalation BID #180 ea 12/09/21 06/10/22 Rx mcg/dose blistr powdr for inhalation (Wixela Inhub) montelukast 10 mg tablet 10 mg PO DAILY #90 tabs 12/09/21 06/10/22 Rx quinapril 40 mg tablet 40 mg PO DAILY #90 tabs 01/02/22 06/10/22 Rx omeprazole 20 mg capsule,delayed 20 mg PO DAILY #90 caps 03/26/22 06/10/22 Rx release potassium chloride 10 mEq 10 meq PO DAILY 03/26/22 06/10/22 History tablet,extended release(part/cryst) (Klor-Con M) simvastatin 20 mg tablet 20 mg PO QHS #90 tabs 04/07/22 06/10/22 Rx metformin 1,000 mg tablet 1,000 mg PO BID #180 tabs 04/09/22 06/10/22 Rx diltiazem HCl 120 mg 120 mg PO BID #180 caps 04/10/22 06/10/22 Rx capsule,extended release 12 hr escitalopram oxalate 10 mg tablet 10 mg PO DAILY #90 tabs 04/10/22 06/10/22 Rx glipizide 10 mg tablet
--- NOTE | 2022-06-10 08:34 | SUR.OPER ---
EGD: [id number] COLON: [id number]
[2022-06-10 09:01] VITALS: BP 99/38; PULSE 71; RESP 20; O2SAT 99
[2022-06-10 09:11] VITALS: BP 114/54; PULSE 72; RESP 19; O2SAT 99
[2022-06-10 09:21] VITALS: BP 124/59; PULSE 66; RESP 18; O2SAT 100
== END 2022-06-10 09:38 | disposition home or self-care (01) ==
PROVIDERS: PCP Family Medicine; Visit Provider Internal Medicine Gastroenterology
PROC: 0DJ08ZZ Inspection of Upper Intestinal Tract, Via Natural or Artificial Opening Endoscopic (ICD-10-PCS; CPT 43235; principal; 2022-06-10 08:30)
DX: D50.9 Iron deficiency anemia, unspecified (principal); K64.8 Other hemorrhoids; R05.9 Cough, unspecified; Z86.010 Personal history of colon polyps; J45.909 Unspecified asthma, uncomplicated; Z85.038 Personal history of other malignant neoplasm of large intestine; E11.42 Type 2 diabetes mellitus with diabetic polyneuropathy; K21.9 Gastro-esophageal reflux disease without esophagitis; F41.9 Anxiety disorder, unspecified; E78.5 Hyperlipidemia, unspecified; I10 Essential (primary) hypertension; Z79.84 Long term (current) use of oral hypoglycemic drugs; Z79.51 Long term (current) use of inhaled steroids
CPT/HCPCS: 45378; 43235; 74250; 82948; J2704; J7120

== ENCOUNTER 2022-09-24 11:37 | Outpatient (CLI) | payer OTHER, SELFPAY ==
[2022-09-24 18:46] LABS: Alanine Aminotransferase 51 U/L (6-35); Albumin Level 4.1 g/dL (3.5-5.1); Alkaline Phosphatase 42 U/L (38-126); Anion Gap 5 mmol/L (8-16); Aspartate Amino Transferase 36 U/L (14-36); Bilirubin,Total 0.2 mg/dL (0.2-1.3); Blood Urea Nitrogen 14 mg/dL (7-17); Calcium 9.2 mg/dL (8.4-10.2); Carbon Dioxide 29 mmol/L (22-30); Chloride 100 mmol/L (98-107); Estimated Glomerular Filt Rate > 60; Glucose 237 mg/dL (65-110); Potassium 4.3 mmol/L (3.4-5.0); Sodium 134 mmol/L (137-145)
[2022-09-24 19:46] LABS: Basophils Percent Auto 0.7 % (0.2-1.2); Eosinophils Absolute Auto 0.2 K/mm3 (0-0.3); Hematocrit 40.1 % (37.0-47.0); Hemoglobin 12.9 g/dL (12.0-15.0); Immature Granulocyte Absolute 0.04 K/mm3 (0.00-0.031); Immature Granulocyte Percent A 0.7 % (0-0.5); Lymphocytes Absolute Auto 1.89 K/mm3 (0.9-3.2); Lymphocytes Percent Auto 31.8 % (18.3-44.2); Mean Corpuscular HGB Conc 32.2 g/dl (32-36); Mean Corpuscular Hemoglobin 26.8 pg (26-34); Mean Corpuscular Volume 83.2 fl (80-100); Mean Platelet Volume 9.8 fl (7.4-10.4); Monocytes Absolute Auto 0.6 K/mm3 (0.1-0.6); Monocytes Percent Auto 10.4 % (2.6-8.5); Neutrophils Absolute Auto 3.2 K/mm3 (1.3-6.7); Neutrophils Percent Auto 53.4 % (45.5-73.1); Platelet Count Result 249 k/mm3 (150-375); Red Blood Count 4.82 M/mm3 (4.2-5.4); Red Cell Distribution Width 14.7 % (11.5-14.5); White Blood Count 5.9 K/mm3 (4.5-10.0)
[2022-09-24 20:00] LABS: Hemoglobin A1C 8.8 % (<5.7)
== END 2022-09-24 11:38 | disposition home or self-care (01) ==
LOC: ANHGOSHLAB 11:38
PROVIDERS: PCP Family Medicine; Visit Provider Family Medicine
DX: D50.9 Iron deficiency anemia, unspecified (principal); I10 Essential (primary) hypertension; E11.9 Type 2 diabetes mellitus without complications
CPT/HCPCS: 36415; 80053; 83036; 85025

== ENCOUNTER 2022-12-02 13:32 | Outpatient (CLI) | payer OTHER, SELFPAY ==
--- NOTE | ~2022-12-02 | US_ITS ---
EXAMINATION: US thyroid DATE: 12/02/2022 14:15 INDICATION: Nontoxic goiter, unspecified. TECHNIQUE: Multiple ultrasound images of the thyroid were obtained. COMPARISON: None. FINDINGS: The right thyroid lobe measures 3.2 x 1.5 x 1.6 cm. The left thyroid lobe measures 3.7 x 1.1 x 1.6 c m. In the right thyroid lobe, there is a 5 mm solid, very hypoechoic, wider than tall nodule with sm ooth margin without echogenic foci (TI-RADS TR4). In the left thyroid lobe, there is a 6 mm mixed cys tic and solid, isoechoic, wider than tall nodule with ill-defined margin without echogenic foci (TR2) . In the left thyroid lobe, there is a 9 mm mixed cystic and solid, isoechoic, wider than tall nodule with smooth margin without echogenic foci (TR2). IMPRESSION: 1. Small thyroid nodules, likely not clinically significant. No follow-up is needed. Reviewed, dictated and finalized at location A. IMPRESSION: 1. Small thyroid nodules, likely not clinically significant. No follow-up is ne eded.
== END 2022-12-02 13:33 | disposition home or self-care (01) ==
PROVIDERS: PCP Family Medicine; Visit Provider Registered Nurse
DX: E04.2 Nontoxic multinodular goiter (principal)
CPT/HCPCS: 76536

== ENCOUNTER 2022-12-23 12:20 | Outpatient (CLI) | payer OTHER, SELFPAY ==
[2022-12-23 21:22] LABS: Alanine Aminotransferase 45 U/L (6-35); Albumin Level 4.4 g/dL (3.5-5.1); Alkaline Phosphatase 43 U/L (38-126); Anion Gap 13 mmol/L (8-16); Aspartate Amino Transferase 38 U/L (14-36); Bilirubin,Total 0.4 mg/dL (0.2-1.3); Blood Urea Nitrogen 11 mg/dL (7-17); Carbon Dioxide 22 mmol/L (22-30); Chloride 100 mmol/L (98-107); Estimated Glomerular Filt Rate > 60; Glucose 162 mg/dL (65-110); Potassium 4.1 mmol/L (3.4-5.0); Sodium 135 mmol/L (137-145)
== END 2022-12-23 12:21 | disposition home or self-care (01) ==
LOC: ANHGOSHLAB 12:21
PROVIDERS: PCP Family Medicine; Visit Provider Family Medicine
DX: E11.9 Type 2 diabetes mellitus without complications (principal); I10 Essential (primary) hypertension; Z79.899 Other long term (current) drug therapy
CPT/HCPCS: 36415; 80053; 83036

== ENCOUNTER 2023-02-12 11:43 | Emergency (ER) | payer OTHER, SELFPAY ==
[2023-02-12 11:56] VITALS: BP 166/74; PULSE 76; RESP 16; TEMP 36.9; O2SAT 99
[2023-02-12 11:59] VITALS: BP 166/74; PULSE 76; RESP 16; TEMP 36.9; O2SAT 99
--- NOTE | 2023-02-12 12:05 | ED.SKABFB ---
HPI - Skin/Abscess/Foreign Bdy General Chief complaint: Skin/Abscess/Foreign Body Stated complaint: insect bite on right lower caro Source: patient and RN notes reviewed History of Present Illness HPI narrative: 72 yo F presents to urgent care with complaints of a possible spider bite to her right lower leg. Pt states she and her working outside in [place] a couple days ago but she 1st noticed it. Patient reports associated tenderness to the area. Patient denies any vomiting, fevers, chills, numbness, or tingling. Patient has been applying peroxide and cortisone cream to the area. Some parts of this dictation were generated by voice recognition software and may contain typographical and/or grammatical inaccuracies. Related Data Home Medications Medication Instructions Recorded Confirmed ascorbic acid (vitamin C) 500 mg 500 mg PO DAILY 08/26/19 12/23/22 tablet,extended release (Vitamin C With Marilu Hips) calcium carbonate 600 mg calcium 600 mg PO DAILY 08/26/19 12/23/22 (1,500 mg) tablet (Calcium) cod liver oil 1 cap PO DAILY 08/26/19 12/23/22 cyanocobalamin (vitamin B-12) 500 500 mcg PO DAILY 08/26/19 12/23/22 mcg tablet (Vitamin B-12) omega-3 fatty acids 1,000 mg 1,000 mg PO DAILY 08/26/19 12/23/22 capsule gabapentin 300 mg capsule 600 mg PO DAILY 11/27/22 12/23/22 primidone 50 mg tablet 100 mg PO QHS 12/23/22 12/23/22 Allergies Allergy/AdvReac Type Severity Reaction Status Date / Time adhesive Allergy Intermediate SURGICAL Verified 12/23/22 11:25 TAPE Cephalosporins Allergy Intermediate RASH AND Verified 12/23/22 11:25 ITCHING clarithromycin Allergy Intermediate RASH AND Verified 12/23/22 11:25 ITCHING doxycycline Allergy Intermediate RASH Verified 12/23/22 11:25 erythromycin base Allergy Intermediate RASH AND Verified 12/23/22 11:25 ITCHING ciprofloxacin Allergy Unknown RASH/ITICHI Verified 12/23/22 11:25 NG Penicillins Allergy Unknown HIVES Verified 12/23/22 11:25 tetracycline Allergy Unknown RASH Verified 12/23/22 11:25 RESPIRATIORY ISSUES ibuprofen Allergy Rash Verified 12/23/22 11:25 scented soap Allergy Intermediate short of Uncoded 12/23/22 11:25 breath SWEET POTATOES Allergy Intermediate HIVES Uncoded 12/23/22 11:25 CEPHALEXIN MONOHYDRATE AdvReac Unknown NAUSEA/VOMI Uncoded 12/23/22 11:25 TING pomegranate juice AdvReac Unknown Unknown Uncoded 12/23/22 11:25 Soy Milk AdvReac Unknown COUNTERACTS Uncoded 12/23/22 11:25 WITH ASTHMA MEDICINE Review of Systems Review of Systems: CONSTITUTIONAL: Denies fever, chills, or sweats. EYES: Denies visual changes, redness, or discharge. ENT: Denies otalgia and sore throat CARDIOVASCULAR: Denies chest pain, palpitations, or edema. RESPIRATORY: Denies cough or dyspnea. GASTROINTESTINAL: Denies abdominal pain, nausea, vomiting, or diarrhea. GENITOURINARY: Denies dysuria or hematuria. SKIN: Red and tender area to right lower caro MUSCULOSKELETAL: Denies back pain, joint pain, or myalgia. NEUROLOGIC: Denies headache, numbness, or weakness. Pertinent positives per HPI. [facility] Past Medical History Medical History Anxiety Asthma Cancer, colon 2013 Cataracts, bilateral 2018 Diabetes Diabetic peripheral neuropathy Dyslipidemia Environmental allergies GERD without esophagitis History of colon cancer HTN (hypertension) Hypokalemia Mild aortic stenosis Osteoporosis Surgical History Surgical History H/O hernia repair incisional hernia 2014 History of partial colectomy 06/2013 History of tonsillectomy Hx of cataract surgery Hx of hysterectomy 1996 Family History Family History Mother Family history of Parkinson's disease, Onset Age: 72 Cerebrovascular accident Diabetes mellitus H
== END 2023-02-12 12:14 | disposition home or self-care (01) ==
PROVIDERS: Emergency Provider Nurse Practitioner Family; PCP Family Medicine
DX: S80.861A Insect bite (nonvenomous), right lower leg, initial encounter (principal); W57.XXXA Bitten or stung by nonvenomous insect and other nonvenomous arthropods, initial encounter; J45.909 Unspecified asthma, uncomplicated; E11.42 Type 2 diabetes mellitus with diabetic polyneuropathy; E78.5 Hyperlipidemia, unspecified; K21.9 Gastro-esophageal reflux disease without esophagitis; I10 Essential (primary) hypertension; I35.0 Nonrheumatic aortic (valve) stenosis; M81.0 Age-related osteoporosis without current pathological fracture; Z85.038 Personal history of other malignant neoplasm of large intestine
CPT/HCPCS: 99213; G0463

== ENCOUNTER → 2023-03-04 12:00 | Outpatient (CLI) | payer OTHER, SELFPAY ==
--- NOTE | ~2023-03-04 | XR_ITS ---
EXAM: XR ankle LT min 3V DATE: 03/05/2023 14:49 HISTORY: TWISTED ANKLE; LATERAL PAIN AND SWELLING . COMPARISON: None available. FINDINGS: Decreased mineralization. No fracture or dislocation. No lytic or blastic lesion. Mild deg enerative change in the tibiotalar joint. Achilles and plantar enthesopathy. No erosion or periosteal change. Mild soft tissue swelling about the ankle. Small ankle joint effusion. IMPRESSION: No acute osseous finding in the left ankle. Reviewed, dictated and finalized at location K.
== END ==
PROVIDERS: PCP Family Medicine; Visit Provider Family Medicine
DX: M25.572 Pain in left ankle and joints of left foot (principal)
CPT/HCPCS: 73610

== ENCOUNTER 2023-04-14 08:43 | Outpatient (CLI) | payer OTHER, SELFPAY ==
--- NOTE | 2023-05-08 17:48 | WPDSLEEPSTUD ---
Sleep Study Date of Study: 04/14/23 Ordering Provider: Orin Roberson MD Interpreting Physician: Macie Smith MD Sleep Study Type: Split Polysomnogram Height: 1.63 m Weight: 77.111 kg Body Mass Index: 29.2 Neck Circumference (inches): 15 Ward: 5 Reason for Sleep Study Snoring and daytime hypersomnia Sleep History Maritza Bhatia a 73-year-old female with history of hypertension, dyslipidemia, diabetes with peripheral neuropathy, mild aortic stenosis, asthma, tremors, anxiety, and history of colon cancer who is having a split night sleep study for evaluation of snoring and daytime hypersomnia. She rarely awakens from sleep short of breath. She never awakens at night with heartburn, belching or coughing. She occasionally snores and frequently snores loudly enough that others complain. She rarely has trouble sleeping when she has a cold. She never wakes up gasping for breath during the night. She rarely has breathing problems at night. She rarely sweats excessively at night. She never notices her heart pounding or beating irregularly during the night. She constantly falls asleep during the day. She constantly falls asleep involuntarily but never falls asleep while driving. She rarely experiences loss of muscle tone with strong emotion. She rarely feels paralyzed on waking or falling asleep. She never experiences vivid dreams upon waking or falling asleep. She does not feel afraid of going to sleep. She rarely has nightmares. She rarely recalls her dreams. She occasionally has thoughts racing through her mind. She occasionally feels sad or depressed. She occasionally feels anxiety or worry about things. She does not notice parts of her body jerk. She never kicks during the night. She never feels crawling or aching feelings in her legs. She rarely feels leg pain at night. She rarely grinds her teeth during sleep and never has morning jaw pain. She occasionally wakes up feeling stiff, sore, and achy in the morning with pain in her neck, spine, or joints. Normal bedtime is around 9:30pm to 10pm on the weekdays same on the weekends. States she does not take long to fall asleep. She typically gets about 6 to 7 hours of sleep per night. Her wake up time is 5:30am on the weekdays and same on the weekends. She typically wakes up around 1 to 2 times per night and will use the bathroom. She watches TV before falling asleep and occasionally takes naps in the afternoon or evening. Habits: Never tobacco smoker. Caffeine use is 1 cup of coffee per day in the morning. No alcohol or recreational substances. [facility] Past Medical History Medical History Anxiety Asthma Cancer, colon 2013 Cataracts, bilateral 2018 Diabetes Diabetic peripheral neuropathy Dyslipidemia Environmental allergies GERD without esophagitis History of colon cancer HTN (hypertension) Hypokalemia Mild aortic stenosis Osteoporosis Surgical History Surgical History H/O hernia repair incisional hernia 2014 History of partial colectomy 06/2013 History of tonsillectomy Hx of cataract surgery Hx of hysterectomy 1996 Family History Family History Mother Family history of Parkinson's disease, Onset Age: 72 Cerebrovascular accident Diabetes mellitus Hypertension Father Carcinoma of colon, Onset Age: 40 Family history of primary malignant neoplasm of liver, Onset Age: 40 Other Family history of lymphoma Social History Social History Smoking status: Never smoker Second hand tobacco smoke exposure: No Alcohol intake: never Substance use: never Substance use type: does not use Lack of Transportation: No Lack of Food: Never True Current Housing: I Have Housing Concerned About Future Housing: No
[2023-05-08 18:05] VITALS: BMI 29.2
== END 2023-04-15 06:52 | disposition home or self-care (01) ==
LOC: ANHCSM 08:44
PROVIDERS: PCP Family Medicine; Visit Provider Family Medicine
DX: R40.0 Somnolence (principal); R29.818 Other symptoms and signs involving the nervous system; G47.33 Obstructive sleep apnea (adult) (pediatric)
CPT/HCPCS: 95811

== ENCOUNTER 2023-06-03 09:27 | Outpatient (CLI) | payer OTHER, SELFPAY ==
--- NOTE | ~2023-06-03 | MM_ITS ---
EXAMINATION: MM screening daisy BI w antoine HISTORY: Screening mammogram TECHNIQUE: Craniocaudal and mediolateral oblique 3-D tomosynthesis images were obtained and synthetic 2-D images were generated. CAD analysis was submitted and interpreted. COMPARISON: 06/02/2022, 11/16/2020, 11/10/2019 bilateral screening mammogram examinations BREAST PARENCHYMAL COMPOSITION: There are scattered areas of fibroglandular density. FINDINGS: There is no evidence of suspicious mass, calcification, or architectural distortion to sugg est malignancy in either breast. There has been no suspicious interval change. IMPRESSION: 1. No mammographic evidence of malignancy. 2. Recommend routine screening mammography in one year. BI-RADS Category 1: Negative Reviewed, dictated and finalized at location A.
== END 2023-06-03 09:28 | disposition home or self-care (01) ==
LOC: ANHIMG 09:28
PROVIDERS: PCP Family Medicine; Visit Provider Registered Nurse
DX: Z12.31 Encounter for screening mammogram for malignant neoplasm of breast (principal)
CPT/HCPCS: 77063; 77067

== ENCOUNTER 2023-06-16 16:17 | Outpatient (CLI) | payer OTHER, SELFPAY ==
--- NOTE | ~2023-06-16 | US_ITS ---
EXAMINATION: US carotid duplex BI DATE: 06/16/2023 16:46 INDICATION: Bilateral carotid bruits TECHNIQUE: Grayscale, color Doppler, and pulsed Doppler images of the cervical carotid arteries were obtained. The degree of vessel stenosis is placed in one of the following categories: normal, <50%, 5 0-69%, >=70% but less than near-occlusion, near-occlusion, or total occlusion. Note that percent sten osis relative to normal distal artery lumen diameter is indirectly measured from velocity measurement s as described by Pio, et al. Radiology 2003; 229:340-346. COMPARISON: None. FINDINGS: RIGHT: The right common carotid artery (CCA) peak systolic velocity (PSV) is 78 cm/s. The right internal car otid artery (ICA) PSV is 154 cm/s. The right ICA end-diastolic velocity (EDV) is 34 cm/s. The right I CA/CCA PSV ratio is 2.0. Grayscale and color Doppler images yield an estimate of 50-69% diameter redu ction from plaque in the ICA. The external carotid artery (ECA) PSV is 64 cm/s. There is antegrade fl ow in the right vertebral artery. LEFT: The left CCA PSV is 82 cm/s. The left ICA PSV is 140 cm/s. The left ICA EDV is 26 cm/s. The left ICA/ CCA PSV ratio is 1.7. Grayscale and color Doppler images yield an estimate of 50-69% diameter reducti on from plaque in the ICA. The ECA PSV is 59 cm/s. There is antegrade flow in the left vertebral justin ry. IMPRESSION: 1. 50-69% stenosis in the right internal carotid artery. 2. 50-69% stenosis in the left internal carotid artery. 3. Cardiac arrhythmia is present. Correlate with EKG. Reviewed, dictated and finalized at location A.
== END 2023-06-16 16:18 | disposition home or self-care (01) ==
PROVIDERS: PCP Family Medicine; Visit Provider Internal Medicine Cardiovascular Disease
DX: R09.89 Other specified symptoms and signs involving the circulatory and respiratory systems (principal); I65.23 Occlusion and stenosis of bilateral carotid arteries
CPT/HCPCS: 93880

== ENCOUNTER → 2023-07-29 11:30 | Outpatient (CLI) | payer OTHER, SELFPAY ==
--- NOTE | ~2023-07-29 | XR_ITS ---
EXAMINATION: XR nasal bones min 3V INDICATION: Facial pain after fall TECHNIQUE: Three views of the nasal bones are obtained. COMPARISON: None available FINDINGS: There appears to be nondisplaced fracture of the right nasal bone. No additional facial bon e fracture is identified. The paranasal sinuses appear to be well aerated. IMPRESSION: 1. Probable nondisplaced right nasal bone fracture. Reviewed, dictated and finalized at location B. ATION OFFICER
== END ==
PROVIDERS: PCP Family Medicine; Visit Provider Family Medicine
DX: S09.92XA Unspecified injury of nose, initial encounter (principal); W19.XXXA Unspecified fall, initial encounter
CPT/HCPCS: 70160

== ENCOUNTER 2023-10-01 11:31 | Outpatient (CLI) | payer OTHER, SELFPAY ==
[2023-10-01 15:31] LABS: Alanine Aminotransferase 44 U/L (6-35); Albumin Level 4.2 g/dL (3.5-5.1); Alkaline Phosphatase 48 U/L (38-126); Anion Gap 9 mmol/L (8-16); Aspartate Amino Transferase 41 U/L (14-36); Bilirubin,Total 0.3 mg/dL (0.2-1.3); Blood Urea Nitrogen 14 mg/dL (7-17); Calcium 9.7 mg/dL (8.4-10.2); Carbon Dioxide 26 mmol/L (22-30); Chloride 99 mmol/L (98-107); Estimated Glomerular Filt Rate > 60; Glucose 289 mg/dL (65-110); Potassium 4.3 mmol/L (3.4-5.0); Sodium 134 mmol/L (137-145)
[2023-10-01 19:49] LABS: Hemoglobin A1C 8.4 % (<5.7)
== END 2023-10-01 11:32 | disposition home or self-care (01) ==
PROVIDERS: PCP Family Medicine; Visit Provider Family Medicine
DX: E11.9 Type 2 diabetes mellitus without complications (principal); I10 Essential (primary) hypertension
CPT/HCPCS: 36415; 80053; 83036

== ENCOUNTER 2024-06-06 10:06 | Outpatient (CLI) | payer OTHER, SELFPAY ==
--- NOTE | ~2024-06-06 | MM_ITS ---
EXAMINATION: MM screening [facility] BI w antoine HISTORY: Screening mammogram TECHNIQUE: Craniocaudal and mediolateral oblique 3-D tomosynthesis images were obtained and synthetic 2-D images were generated. CAD analysis was submitted and interpreted. COMPARISON: 06/03/2023, 06/02/2022, 11/16/2020, 11/14/2019 BREAST PARENCHYMAL COMPOSITION:Not Dense. There are scattered areas of fibroglandular density. FINDINGS: No suspicious mass, calcification, or architectural distortion are identified in either rafy ast to suggest malignancy. There has been no suspicious interval change. IMPRESSION: No mammographic evidence of malignancy. Recommend routine screening mammography in one year. BI-RADS Category 1: Negative Reviewed, dictated and finalized at location .
== END 2024-06-06 10:07 | disposition home or self-care (01) ==
LOC: ANHIMG 10:07
PROVIDERS: PCP Family Medicine; Visit Provider Nurse Practitioner Family
DX: Z12.31 Encounter for screening mammogram for malignant neoplasm of breast (principal)
CPT/HCPCS: 77063; 77067

== ENCOUNTER 2024-06-28 10:25 | Outpatient (CLI) | payer OTHER, SELFPAY ==
--- NOTE | ~2024-06-28 | US_ITS ---
EXAMINATION: US carotid duplex BI DATE: 06/28/2024 11:20 INDICATION: Carotid stenosis TECHNIQUE: Grayscale, color Doppler, and pulsed Doppler images of the cervical carotid arteries were obtained. The degree of vessel stenosis is placed in one of the following categories: normal, <50%, 5 0-69%, >=70% but less than near-occlusion, near-occlusion, or total occlusion. Note that percent sten osis relative to normal distal artery lumen diameter is indirectly measured from velocity measurement s as described by Pio, et al. Radiology 2003; 229:340-346. Notes: Normal: Peak systolic velocity <125 centimeters/sec and no plaque <50%. Peak systolic velocity <125 ( EDV <40; ICA/CCA PSV ratio <2.0; used these factors only a tandem lesions or low cardiac output or co ntralateral disease) 50-69 %: PSV 125-230 (EDV 40-100; ratio 2-4) >= 70% but less than near occlusion: PSV greater than 230 (EDV > 100; ratio> 4.0) Near Occlusion: PSV that is variable; markedly narrowed lumen Occlusion: Absent flow on color/spectral Doppler and no lumen on dennis scale. COMPARISON: Ultrasound dated 06/16/2023. FINDINGS: RIGHT: The right common carotid artery (CCA) peak systolic velocity (PSV) is 68 cm/s. The right internal car otid artery (ICA) PSV is 133 cm/s. The right ICA end-diastolic velocity (EDV) is 31 cm/s. The right I CA/CCA PSV ratio is 2.0. The external carotid artery (ECA) PSV is 98 cm/s. There is antegrade flow in the right vertebral artery. LEFT: The left CCA PSV is 94 cm/s. The left ICA PSV is 89 cm/s. The left ICA EDV is 20 cm/s. The left ICA/C CA PSV ratio is 0.9. The ECA PSV is 156 cm/s. There is antegrade flow in the left vertebral artery. IMPRESSION: 1. 50-69% stenosis in the right internal carotid artery by sonographic criteria. 2. Less than 50% stenosis in the left internal carotid artery by sonographic criteria. Reviewed, dictated and finalized at location B. IMPRESSION: 1. 50-69% stenosis in the right internal carotid artery by sonographic criteria . 2. Less than 50% stenosis in the left internal carotid artery by sonographic cr iteria.
== END 2024-06-28 10:26 | disposition home or self-care (01) ==
PROVIDERS: PCP Family Medicine; Visit Provider Internal Medicine Cardiovascular Disease
DX: I65.23 Occlusion and stenosis of bilateral carotid arteries (principal)
CPT/HCPCS: 93880

== ENCOUNTER 2024-11-30 08:52 | Outpatient (CLI) | payer MEDICARE, SELFPAY ==
--- NOTE | ~2024-11-30 | DEXA_ITS ---
Bone Density Report Name: LIZABETH GAINES Age: 74 Sex: Female Ethnicity: White Date of : 1950 Indication: postmenopausal osteoporosis; monitoring treatment; hyperparathyroidism; height loss; asthma or emphysema; hysterectomy; Referring Provider: JOE ROJAS Study: Bone densitometry was performed. Exam Date: November 30, 2024 Accession number: [id number] Bone Density: Region BMD T-score Z-score Classification AP Spine(L1-L4) 0.908 -1.3 1.0 Osteopenia Femoral Neck (Left) 0.694 -1.4 0.6 Osteopenia Total Hip (Left) 0.936 0.0 1.6 Normal Femoral Neck (Right) 0.724 -1.1 0.8 Osteopenia Total Hip (Right) 0.848 -0.8 0.9 Normal Total Hip Mean 0.892 -0.4 1.3 Normal World Health Organization criteria for BMD impression classify patients as: Normal (T-score at or above -1.0), Osteopenia (T-score between -1.0 and -2.5), or Osteoporosis (T-score at or below -2.5). 10-year Fracture Risk: FRAX not reported because: Treated for osteoporosis Previous Exams: Region Exam Age BMD T-score BMD Change BMD Change Date g/cm2 vs Baseline vs Previous AP Spine (L1-L4) 11/30/2024 74 0.908 -1.3 -0.015 (-1.6%) 0.131 (16.8%)# 06/02/2022 72 0.777 -2.5 -0.146 (-15.8% -0.058 (-6.9%) 11/14/2019 69 0.835 -1.9 -0.088 (-9.5%) -0.070 (-7.7%) 10/14/2014 64 0.905 -1.3 -0.018 (-2.0%) -0.018 (-2.0%) 09/18/2012 62 0.923 -1.1 Total Hip(Left) 11/30/2024 74 0.936 0.0 -0.003 (-0.4%) 0.000 (0.0%) 06/02/2022 72 0.936 0.0 -0.003 (-0.3%) -0.048 (-4.8%) 11/14/2019 69 0.984 0.3 0.044 (4.7%)# 0.013 (1.3%) 10/14/2014 64 0.971 0.2 0.031 (3.4%)# 0.031 (3.4%)# 09/18/2012 62 0.940 0.0 Total Hip(Right) 11/30/2024 74 0.848 -0.8 -0.076 (-8.2%) -0.075 (-8.2%) 06/02/2022 72 0.923 -0.2 0.000 (0.0%)# 0.001 (0.1%) 11/14/2019 69 0.922 -0.2 -0.001 (-0.1%) -0.029 (-3.1%) 10/14/2014 64 0.952 0.1 0.028 (3.0%)# 0.028 (3.0%)# 09/18/2012 62 0.924 -0.2 *Denotes significance at 95% confidence level, LSC for AP Spine = 0.022 g/cm2, LSC for Total Hip = 0.027 g/cm2 # Denotes dissimilar scan types or analysis methods Clinical Information Provided by Patient: Is being treated for osteoporosis Has used the following medications: Fosamax (i.e. alendronate), Vitamin D, Calcium Has the following medical conditions: Asthma or Emphysema, Hyperparathyroidism, Hysterectomy, type II diabetes Patient maximum height was 64.0 Menopause Age: 48 No regular weight bearing exercise Does not regularly consume dairy products Drinks caffeinated beverages Onset of menses at age 13 Number of children 0 Impression: The patient has low bone mass, based on the Left Femoral Neck T-score. The BMD for the Total Hip(Right) decreased, changing by -8.2% since the last DXA exam. Discussion: SIGNIFICANT BONE LOSS OBSERVED. Adherence to therapy (including calcium and vitamin D intake) should be assessed. If compliance is not a factor, review management and exclusion of secondary causes of bone loss. It is important to ask patients whether they are taking their medications and to encourage continued and appropriate compliance with their osteoporosis therapies to reduce fracture risk. It is also important to review their risk factors and encourage appropriate calcium and vitamin D intakes, exercise, fall prevention and other lifestyle measures. Follow-Up: Consider a repeat BMD and Vertebral Fracture Assessment (VFA) exam in 2 years or sooner if medically necessary, to reassess this patient's status. Reported by: MELISSA on 11/30/2024 9:28:00 AM. Reviewed, dictated and finalized at location [facility]
--- OUTSIDE RECORDS SUMMARY | 2024-11-30 09:25 | XMS_ITS | Clinical Summary ---
Author Organization [facility] Address 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 Name Role Phone Orin Roberson MD Primary Care Provider Allergies Active Allergy Reactions Criticality Noted Date Comments Adhesive Tape-Silicones Rash Medium 08/02/2013 Cephalexin Vomiting Low 01/26/2022 Cephalosporins Hives Medium 08/02/2013 Ciprofloxacin Rash,Hives Medium 05/30/2021 Clarithromycin Rash Medium 05/30/2021 Doxycycline Rash Medium 05/30/2021 Erythromycin Rash Medium 05/30/2021 Ibuprofen Rash Medium 05/30/2021 Macrolide Antibiotics Hives Medium 08/02/2013 Nut.Tx,Ketogenic,Milk-Soy Shortness of breath High 0 05/30/2021 Penicillins Rash,Hives Medium 08/02/2013 Pomegranate Shortness of breath High 05/30/2021 Sweet Potato Hives Medium 05/30/2021 Tetracyclines Rash Medium 08/02/2013 Medications Contour Next Test Strips strip USE TO CHECK BLOOD SUGAR DAILY 04/07/20 21 Active Wixela Inhub 250-50 mcg/dose diskus inhaler Inhale 1 puff 2 (two) times a day 04/23/20 21 Active hydroCHLOROthi azide (HYDRODIURIL) 25 mg tablet Take 1 tablet (25 mg total) by mouth daily 04/11/20 21 Active levalbuterol (XOPENEX) 0.63 mg/3 mL nebulizer solution 08/02/2013Xopenex, aero 0.63mg/3ml Vial, nebulizer (ml)By inhalationas directedCurrent Medication 08/02/20 13 Active metFORMIN (GLUCOPHAGE) 1,000 mg tablet Take 1 tablet (1,000 mg total) by mouth 2 (two) times a day 05/16/20 21 Active montelukast (SINGULAIR) 10 mg tablet Take 1 tablet (10 mg total) by mouth daily 04/01/20 21 Active omeprazole (PriLOSEC) 40 mg capsule Take by mouth daily 04/26/20 21 Active potassium chloride ER 20 mEq CR tablet Take 0.5 tablets (10 mEq total) by mouth 2 (two) times a day 03/12/20 21 Active quinapriL (ACCUPRIL) 40 mg tablet Take 1 tablet (40 mg total) by mouth daily 04/18/20 21 Active simvastatin (ZOCOR) 20 mg tablet Take 1 tablet (20 mg total) by mouth daily 05/16/20 21 Active cyanocobalamin , vitamin B-12, (VITAMIN B-12 ORAL) Take by mouth Activ e ascorbic acid (VITAMIN C ORAL) Take by mouth Active CALCIUM ORAL Take by mouth Act liss docosahexaenoi c acid/epa (FISH OIL ORAL) Take by mouth Active cod liver oil oil Take by mouth Active cholecalcifero l, vitamin D3, (VITAMIN D3 ORAL) Take by mouth Active dilTIAZem SR (CARDIZEM SR) 120 mg 12 hr capsule Take 1 capsule (120 mg total) by mouth 2 (two) times a day 02/08/20 22 Active cinnamon bark 500 mg capsule Take 1 capsule (500 mg total) by mouth daily Active turmeric root extract 500 mg capsule Take by mouth Active flaxseed oiL 1,000 mg capsule Take by mouth Active albuterol HFA (PROVENTIL HFA,VENTOLIN HFA,PROAIR HFA) 90 mcg/actuation inhaler 05/20/20 22 Active escitalopram (LEXAPRO) 20 mg tablet Take 1 tablet (20 mg total) by mouth daily 09/24/19 23 Active gabapentin (NEURONTIN) 600 mg tablet Take 1 tablet (600 mg total) by mouth 2 (two) times a day 10/13/19 23 Active Mounjaro 7.5 mg/0.5 mL pen injector INJECT 7.5 MG (0.5 ML) SUBCUTANEOUSLY WEEKLY 12/02/19 24 Active alendronate (FOSAMAX) 70 mg tablet TAKE 1 TABLET BY MOUTH WEEKLY 03/05/20 24 Active ferrous sulfate 325 mg (65 mg of elemental iron) tablet Take 1 tablet (325 mg total) by mouth daily 01/06/20 24 Active lisinopriL (PRINIVIL,ZEST RIL) 40 mg tablet Take 1 tablet (40 mg total) by mouth daily 03/10/20 24 Active primidone (MYSOLINE) 50 mg tabletIndicati ons:Essential Tremor Take 2 tablets (100 mg total) by mouth nightly 180 tablet 3 03/16/20 24 025 Active vit A-Q-tlarto-zin c-lutein 226-90-0.8-5 mg capsule Take by mouth Activ e Active Problems Problem Noted Date Diagnosed Date Bilateral carotid artery stenosis 12/08/2023 Bilateral carotid bruits 06/02/2023 Atypical chest pain 11/25/2022 Hypertension associated with diabetes 02/11/2022 Hyperlipidemia associated with type 2 diabetes m ellitus 02/11/2022 Localized edema 02/11/2022 Cardiac arrhythmia due to premature depolarizati on 02/11/2022 Abnormal electrocardiogram 02/11/2022 Nonrheumatic aortic valve stenosis 02/11/2022 Essential tremor 05/30/2021 Assessment & Plan (05/30/2021 9:37 AM CDT): Patient has a several year history of insidious onset progressively worsening tremor in both upper extremities which by examination in historical description would be consistent with essential tremor. As she has been using primidone 50 mg HS with no significant noted impact, I will titrate her primidone to 50 mg b.i.d. an effort to facilitate improvement in tremor suppression. She will follow-up in neurology clinic in 6 months time for reassessment on adjusted dosing. Surgical History Surgery Date Site/Laterality Comments TONSILLECTOMY PARTIAL HYSTERECTOMY BUNIONECTOMY HERNIA REPAIR CATARACT EXTRACTION COLON SURGERY June 2013 HYSTERECTOMY 1998 Medical History Medical History Date Comments colocn cancer Diabetes (HCC) Hypertension High cholesterol Asthma 1985 Cataract 2017 Heart murmur Anxiety 2020 Osteoporosis 2021 Family History Medical History Relation Name Comments Cancer Father Stomach Colon cancer Father Stomach Hypertension Mother Allyn Parkinsonism Mother Allyn Stroke Mother Allyn Relation Name Status Comments Father Stomach Mother Allyn Social History Tobacco Use Types Packs/Day Years Used Date Smoking Tobacco: Never Cigarettes Smokeless Tobacco: Never Tobacco Cessation:Counseling Given: Not Answered AUDIT-C Answer Date Recorded Q1: How often do you have a drink containing alcohol? Never 05/16/2022 Q2: How many drinks containi ng alcohol do you have on a typical day when you are drinking? Patient does not drink Q3: How often do you have si x or more drinks on one occasion? Never 05/16/2022 Personal Safety Answer Date Recorded Getting School Help Needed Not on file 11/09 Comments Unknown Sex and Gender Information Value Date Recorded Sex Assigned at Not on file Legal Sex Female 8:21 AM CDT Gender Identity Female 05/23/2021 10:16 AM CDT Sexual Orientation Straight 05/23/2021 10 :16 AM CDT Obstetrics History Last Filed Vital Signs Vital Sign Reading Time Taken Comments Blood Pressure 134/66 06/16/2024 12:44 PM CDT Pulse 71 06/16/2024 12:44 PM CDT Temperature 36.6 C (97.8 F) 05/16/2022 10:11 AM CDT Respiratory Rate - - Oxygen Saturation 98% 06/16/2024 12:44 PM CDT Inhaled Oxygen Concentration - - Weight 67.6 kg (149 lb) 06/16/2024 12:44 PM CDT Height 162.6 cm (5' 4 ) 06/16/2024 12:44 PM CDT Body Mass Index 25.58 06/16/2024 12:44 PM CDT Plan of Treatment Health Maintenance Due Date Last Done Comments Albumin Creatinine Ratio, Urine 1950 Breast Cancer Screening-Mammogram 1950 Colon Cancer Screening-Colonoscopy 1950 Depression Screening 1950 Fall Risk Assessment 1950 Hemoglobin A1C 1950 Hepatitis C Screening 1950 Osteoporosis Screening-Bone Density Scan 1950 eGFR 1950 Dilated Eye Exam 1950 Foot Exam 1950 Hepatitis B Screening 1970 Well Visit 65+ 2017 Zoster Vaccine (3 of 3) 10/03/2020 08/08/2020, 10/26 DTaP/Tdap/Td Vaccine (2 - Td or Tdap) 10/26/2022 10/26/2012 Covid-19 Vaccine (3 - 2023-2 5 season) 2024 11/19/2020, 10/29/2020 Influenza Vaccine (#1) 2024 , 06/21/2019, 06/04/2018, Additional history exists Lipid Panel 06/09/2025 06/09/2024, 03/21, 02/11/2022 Pneumococcal vaccine 65+ Completed 02/29/2020, 02/20 Procedures Procedure Name Priority Date/Time Associated Diagnosis Comments LIPID PANEL Routine 06/09/2024 from Last 3 Months or Most Recently Relevant to Health Maintenance Results * Lipid panel (06/09/2024) SCRIBED Cholesterol, Total 133 <200 [facility] SCRIBED HDL 44 >40 [facility] SCRIBED LDL 66 <100 [facility] SCRIBED Triglycerides 148 <150 [facility] Blood 06/09/2024 Historical Provider LAB BLOOD ORDERABLES Mary Alice pineda Result [facility] from Last 3 Months or Most Recently Relevant to Health Maintenance Insurance [facility] Care Teams 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
--- OUTSIDE RECORDS SUMMARY | 2024-11-30 09:25 | XMS_ITS | Referral Summary ---
Author Organization [facility] [place] [facility] Address [facility] [place] [address] Care Team Providers Care Top Installer Name Role Phone Orin Roberson MD Primary [...] tablet 3 03/16/20 24 025 Active vit N-B-mgclkq-zin c-lutein 226-90-0.8-5 mg capsule Take by mouth [...] months time for reassessment on adjusted dosing. Social History Tobacco Use Types Packs/Day Years [...] Orientation Straight 05/23/2021 10 :16 AM CDT Last Filed Vital Signs Vital Sign Reading [...] 06/16/2024 12:44 PM CDT Plan of Treatment Not on file Procedures Procedure Name Priority Date/Time Associated Diagnosis Comments LIPID PANEL Routine 06/09/2024 from Last 3 Months or Most Recently Relevant to Health Maintenance Results * Lipid panel (06/09/2024) SCRIBED Cholesterol, Total 133 <200 [facility] SCRIBED HDL 44 >40 [facility] SCRIBED LDL 66 <100 [facility] SCRIBED Triglycerides 148 <150 [facility] Blood 06/09/2024 us Historical Provider LAB BLOOD ORDERABLES Mary Alice pineda Result [facility] from Last 3 Months or Most Recently Relevant to Health Maintenance Insurance [facility] [place] [address] [place] [address] HEALTHCARE Care Teams Top Installer Relationship Specialty Start Date End Date Orin Roberson MD [facility] [address] [address] PCP - General Family Practice 03/16/24
--- OUTSIDE RECORDS SUMMARY | 2024-11-30 09:25 | XMS_ITS | Clinical Summary ---
Author Organization [facility] Address [address] [place] [address] Care Team Providers Care Daily Sales Audit Clerk Name Role Phone Orin Roberson MD Primary Care Provider Allergies Active Allergy Reactions Criticality Noted Date Comments Ciprofloxacin Hives 01/26/2022 Clarithromycin Rash Low 01/26/2022 Doxycycline Rash Low 01/26/2022 Erythromycin Rash Low 01/26/2022 Ibuprofen Rash Low 01/26/2022 Cephalexin Vomiting 01/26/2022 Penicillins Hives 01/26/2022 Medications montelukast 10 MG tablet Take 10 mg by mouth daily. 11/30/2021 Active WIXELA INHUB 250-50 MCG/ACT inhaler INHALE 1 PUFF TWICE A DAY 12/18/2021 Active hydroCHLOROthia zide 25 MG tablet Take 25 mg by mouth every morning. Active levalbuterol 45 MCG/ACT inhaler Inhale into the lungs every 4 (four) hours as needed for Wheezing. Active quinapril 40 MG tablet Take 40 mg by mouth daily. Active dilTIAZem SR 120 MG 12 hr capsule Take 120 mg by mouth 2 (two) times daily. Active simvastatin 10 MG tablet Take 10 mg by mouth nightly at bedtime. Active potassium chloride CR 10 MEQ Tab CR tablet Take 1 tablet by mouth 2 (two) times daily. Active glipiZIDE 10 MG tablet Take 10 mg by mouth every morning before breakfast. Active metFORMIN 1000 MG tablet Take 1,000 mg by mouth 2 (two) times daily with meals. Active omeprazole 40 MG capsule Take 40 mg by mouth daily. Active gabapentin 300 MG capsule Take 300 mg by mouth 3 (three) times daily. Active primidone 50 MG tablet Take 50 mg by mouth 4 (four) times daily. Active vitamin B-12 500 MCG tablet Take 500 mcg by mouth daily. Active vitamin C 1000 MG tablet Take 1,000 mg by mouth daily. Active Active Problems No known active problems Social History Tobacco Use Types Packs/Day Years Used Date Smoking Tobacco: Never Assessed Comments No Sex and Gender Information Value Date Recorded Sex Assigned at Not on file Legal Sex Female 12:27 PM APPLICATION SUPPORT Gender Identity Not on file Sexual Orientation Not on file Last Filed Vital Signs Vital Sign Reading Time Taken Comments Blood Pressure 135/51 01/26/2022 1:50 PM CDT Pulse 74 01/26/2022 1:50 PM CDT Temperature 36.8 C (98.2 F) 01/26/2022 1:50 PM CDT Respiratory Rate 16 01/26/2022 1:50 PM CDT Oxygen Saturation 98% 01/26/2022 1:50 PM CDT Inhaled Oxygen Concentration - - Weight 77.6 kg (171 lb) 01/26/2022 1:50 PM CDT Height 162.6 cm (5' 4 ) 01/26/2022 1:50 PM CDT Body Mass Index 29.35 01/26/2022 1:50 PM CDT Plan of Treatment Health Maintenance Due Date Last Done Comments Colorectal Cancer Screening Colonoscopy (10 Years) 1952 Hepatitis C 1970 Mammogram Screening 1992 Annual Medicare Wellness Visit 2017 Dexa Scan (General) 2017 Zoster Vaccines (3 of 3) 10/03/2020 08/08/2020, 01/2013 DTaP, Tdap and Td Vaccines (2 - Td or Tdap) 10/26/2022 10/26/2012 COVID-19 Vaccine ( season) 2024 12/24/2021, 06/18/2021, 11/19/2020, Additional history exists Influenza Adult (#1) 2024 06/21/2019, 06/04/20 18 RSV Immunization or 60+ Years (1 - 1-dose 75+ series) 2027 Pneumococcal Vaccine: 65+ Years Completed 02/29/2020, 03/17/2019 Meningococcal B Vaccine Aged Out No l onger eligible based on patient's age to complete this topic Meningococcal Vaccine Aged Out No leonila santo eligible based on patient's age to complete this topic RSV Immunizations Under 20 Months Aged Out No longer eligible based on patient's age to complete this topic Insurance [employer] Care Teams Daily Sales Audit Clerk Relationship Specialty Start Date End Date Orin Roberson MD [address] [place] [address] PCP - General FAMILY PRACTICE 01/26/22
== END 2024-11-30 08:53 | disposition home or self-care (01) ==
LOC: ANHIMG 08:55
PROVIDERS: PCP Family Medicine; Visit Provider Family Medicine
DX: M85.89 Other specified disorders of bone density and structure, multiple sites (principal); Z78.0 Asymptomatic menopausal state
CPT/HCPCS: 77080

== ENCOUNTER 2024-12-20 09:57 | Outpatient (CLI) | payer MEDICARE, SELFPAY ==
--- NOTE | ~2024-12-20 | MR_ITS ---
MRI of the brain Clinical History: Tremor Technique: Axial and sagittal T1-weighted images were acquired. These were followed by axial T2-weigh kristal, diffusion weighted, gradient, and FLAIR images. Findings: There is no acute infarct, internal hemorrhage, or mass lesion. There is focal chronic infa rct in the right basal ganglia/periventricular white matter. Ventricles and subarachnoid spaces are mildly dilated. Orbits are unremarkable. Paranasal sinuses and mastoid air cells are clear. Major flow voids appear intact. Sagittal midline structures are intact. IMPRESSION: No acute abnormality. 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 Reviewed, dictated and finalized at location . IMPRESSION: No acute abnormality. Focal chronic infarct in the right basal ganglia/right periventricular white ma tter.
== END 2024-12-20 09:58 | disposition home or self-care (01) ==
LOC: GOSHIMG 09:57
PROVIDERS: PCP Family Medicine; Visit Provider Family Medicine
DX: G25.2 Other specified forms of tremor (principal)
CPT/HCPCS: 70551

== ENCOUNTER 2025-04-05 11:16 | Outpatient (CLI) | payer MEDICARE, SELFPAY ==
--- OUTSIDE RECORDS SUMMARY | 2025-04-05 11:50 | XMS_ITS | Clinical Summary ---
Author Organization [facility] Address [address] [place] [address] Care Team Providers Care Air Technician Name Role Phone Orin Roberson MD Primary [...] on file Legal Sex Female 12:27 PM ANESTHESIOLOGY PHYSICIAN ASSISTANT Gender Identity Not on file Sexual Orientation [...] 1:50 PM CDT Height 162.6 cm (5' 4) 01/26/2022 1:50 PM CDT Body Mass Index [...] 2024 12/24/2021, 06/18/2021, 11/19/2020, Additional history exists RSV Immunization or 60+ Years (1 - 1-dose 75+ series) 2027 Pneumococcal Vaccine: 50+ Years Completed 02/29/2020, 03/17/2019 Meningococcal B Vaccine Aged Out No l onger eligible based on patient's age to complete this topic Meningococcal Vaccine Aged Out No leonila santo eligible based on patient's age to complete this topic RSV Immunizations Under 20 Months Aged Out No longer eligible based on patient's age to complete this topic Insurance [employer] Care Teams Air Technician Relationship Specialty Start Date End Date Orin Roberson MD [address] [place] [address] PCP - General FAMILY PRACTICE 01/26/22
[2025-04-05 12:17] LABS: Influenza A QL RT-PCR Negative (Negative); Influenza B QL RT-PCR Negative (Negative); RSV RNA, RT-PCR Negative (Negative); SARS-CoV-2 RNA PCR Negative (Negative)
== END 2025-04-05 11:17 | disposition home or self-care (01) ==
LOC: ANHLAB 11:18
PROVIDERS: PCP Family Medicine; Visit Provider Physician Assistant
DX: J45.21 Mild intermittent asthma with (acute) exacerbation (principal); Z20.822 Contact with and (suspected) exposure to COVID-19
CPT/HCPCS: 87637

== ENCOUNTER 2025-06-09 08:54 | Outpatient (CLI) | payer MEDICARE, SELFPAY ==
--- NOTE | ~2025-06-09 | MM_ITS ---
EXAMINATION: MM screening [facility] BI w antoine HISTORY: Screening TECHNIQUE: Craniocaudal and mediolateral oblique 3-D tomosynthesis images were obtained and synthetic 2-D images were generated. CAD analysis was submitted and interpreted. COMPARISON: Comparison to multiple prior studies sequentially, with oldest reviewed study dated 11/14/2019. BREAST PARENCHYMAL COMPOSITION: There are scattered areas of fibroglandular density. FINDINGS: There is no evidence of suspicious mass, calcification, or architectural distortion to suggest malignancy in either breast. Scattered benign-appearing calcifications are present. IMPRESSION: 1. No mammographic evidence of malignancy. 2. Recommend routine screening mammography in one year. BI-RADS Category 2: Benign finding(s). Reviewed, dictated and finalized at location B.
--- OUTSIDE RECORDS SUMMARY | 2025-06-09 08:58 | XMS_ITS | Clinical Summary ---
Author Organization [facility] [place] [facility] Address [address] [place] [address] Care Team Providers Care Rfid Manager Name Role Phone Orin Roberson MD Primary [...] strip USE TO CHECK BLOOD SUGAR DAILY 021 Active Wixela Inhub 250-50 mcg/dose diskus inhaler Inhale 1 puff 2 (two) times a day 021 Active hydroCHLOROth iazide (HYDRODIURIL) 25 mg tablet Take 1 tablet (25 mg total) by mouth daily 021 Active levalbuterol (XOPENEX) 0.63 mg/3 mL nebulizer solution 08/02/2013Xopenex, aero 0.63mg/3ml Vial, nebulizer (ml)By inhalationas directedCurrent Medication Active metFORMIN (GLUCOPHAGE) 1,000 mg tablet Take 1 tablet (1,000 mg total) by mouth 2 (two) times a day Active montelukast (SINGULAIR) 10 mg tablet Take 1 tablet (10 mg total) by mouth daily Active omeprazole (PriLOSEC) 40 mg capsule Take by mouth daily Active potassium chloride ER 20 mEq CR tablet Take 0.5 tablets (10 mEq total) by mouth 2 (two) times a day Active simvastatin (ZOCOR) 20 mg tablet Take 1 tablet (20 mg total) by mouth daily Active cyanocobalami n, vitamin B-12, (VITAMIN B-12 ORAL) Take by mouth Active ascorbic acid (VITAMIN C ORAL) Take by mouth Active CALCIUM ORAL Take by mouth Act liss docosahexaeno ic acid/epa (FISH OIL ORAL) Take by mouth Active cod liver oil oil Take by mouth Active cholecalcifer ol, vitamin D3, (VITAMIN D3 ORAL) Take by mouth Active dilTIAZem SR (CARDIZEM SR) 120 mg 12 hr capsule Take 1 capsule (120 mg total) by mouth 2 (two) times a day 022 Active cinnamon bark 500 mg capsule Take 1 capsule (500 mg total) by mouth daily Active turmeric root extract 500 mg capsule Take by mouth Activ e flaxseed oiL 1,000 mg capsule Take by mouth Active albuterol HFA (PROVENTIL HFA,VENTOLIN HFA,PROAIR HFA) 90 mcg/actuation inhaler 022 Active escitalopram (LEXAPRO) 20 mg tablet Take 1 tablet (20 mg total) by mouth daily 023 Active gabapentin (NEURONTIN) 600 mg tablet Take 1 tablet (600 mg total) by mouth 2 (two) times a day 023 Active Mounjaro 7.5 mg/0.5 mL pen injector INJECT 7.5 MG (0.5 ML) SUBCUTANEOUSLY WEEKLY 024 Active alendronate (FOSAMAX) 70 mg tablet TAKE 1 TABLET BY MOUTH WEEKLY 024 Active ferrous sulfate 325 mg (65 mg of elemental iron) tablet Take 1 tablet (325 mg total) by mouth daily Active lisinopriL (PRINIVIL,ZES TRIL) 40 mg tablet Take 1 tablet (40 mg total) by mouth daily 024 Active vit A-U-xjugki-zi nc-lutein 226-90-0.8-5 mg capsule Take by mouth Activ e aspirin 81 mg enteric coated tablet Take 1 tablet (81 mg total) by mouth daily Active primidone (MYSOLINE) 50 mg tabletIndicat ions:Essentia l tremor TAKE 2 TABLETS BY MOUTH NIGHTLY 180 tablet 025 Active primidone (MYSOLINE) 50 mg tabletIndicat ions:Essentia l Tremor Take 2 tablets (100 mg total) by mouth nightly 180 tablet 3 024 2024 Discontinued Active Problems Problem Noted Date Diagnosed Date History of stroke 01/10/2025 Bilateral carotid artery stenosis 12/08/2023 Bilateral carotid [...] (HCC) Hypertension High cholesterol Asthma 1985 Cataract 2018 Heart murmur Anxiety 2020 Osteoporosis 2021 Sleep apnea March 2023 Family History Medical History Relation Name Comments Cancer Father Stomach Colon cancer Father Stomach Hypertension Mother Allyn Parkinsonism Mother Allyn Stroke Mother Allyn Relation Name Status Comments Father Stomach Mother Allyn Social History Tobacco Use Types Packs/Day Years Used Date Smoking Tobacco: Never Smokeless Tobacco: Never Tobacco Cessation:Counseling Given: Not Answered AUDIT-C Answer Date Recorded Q1: How often do you have a drink containing alcohol? Never 05/16/2022 Q2: How many drinks containi ng alcohol do you have on a typical day when you are drinking? Patient does not drink Q3: How often do you have si x or more drinks on one occasion? Never 05/16/2022 Comments Unknown Sex and Gender Information Value Date Recorded Sex Assigned at Not on file Legal Sex Female 8:21 AM CDT Gender Identity Female 05/23/2021 10:16 AM CDT Sexual Orientation Straight 05/23/2021 10 :16 AM CDT Obstetrics History Last Filed Vital Signs Vital Sign Reading Time Taken Comments Blood Pressure 116/58 01/10/2025 10:19 AM CDT Pulse 79 01/10/2025 10:19 AM CDT Temperature 36.6 C (97.8 F) 05/16/2022 10:11 AM CDT Respiratory Rate - - Oxygen Saturation 97% 01/10/2025 10:19 AM CDT Inhaled Oxygen Concentration - - Weight 65.8 kg (145 lb) 01/10/2025 10:19 AM CDT Height 162.6 cm (5' 4) 01/10/2025 10:19 AM CDT Body Mass Index 24.89 01/10/2025 10:19 AM CDT Plan of Treatment Health Maintenance Due [...] Tdap) 10/26/2022 10/26/2012 Covid-19 Vaccine (3 - 2024-2 6 season) 2025 11/19/2020, 10/29/2020 Influenza Vaccine (#1) 2025 , 06/21/2019, 06/04/2018, Additional history exists Lipid Panel 01/10/2026 01/10/2025, 05/22, 04/07/2023, Additional history exists Pneumococcal vaccine 65+ Completed 02/29/2020, 02/20 Procedures Procedure Name Priority Date/Time Associated Diagnosis Comments POCT LIPID PANEL Routine 01/10/2025 10:2 1 AM CDT Hyperlipidemia associated with type 2 diabetes mellitus (HCC) from Last 3 Months or Most Recently Relevant to Health Maintenance Results * POCT lipid panel (01/10/2025 10:21 AM CDT) Cholesterol, POC 113 mg/dL HDL, POC 33 mg/dL Triglycerides, POC 139 mg/dL LDL Cholesterol POC 52 mg/dL Chol/HDL Ratio, POC 1.6 Non-HDL Cholesterol, POC 80 mg/dL Cholesterol Total, POC 113 mg/dL Capillary blood 01/10/2025 1 0:21 AM CDT Jesus Cohen MD POINT OF CARE TEST ORDERA BLES Final Result from Last 3 Months or Most Recently Relevant to Health Maintenance Insurance [employer] Care Teams Rfid Manager Relationship Specialty Start Date End Date Orin Roberson MD [facility] [place][NOTE 2] [address] [address] PCP - General Family Practice 03/16/24
== END 2025-06-09 08:55 | disposition home or self-care (01) ==
LOC: ANHFOHIMG 08:56
PROVIDERS: PCP Family Medicine; Visit Provider Nurse Practitioner Family
DX: Z12.31 Encounter for screening mammogram for malignant neoplasm of breast (principal)
CPT/HCPCS: 77063; 77067

== ENCOUNTER 2025-06-13 13:54 | Outpatient (CLI) | payer MEDICARE, SELFPAY ==
--- OUTSIDE RECORDS SUMMARY | 2025-06-13 14:06 | XMS_ITS | Clinical Summary ---
Author Organization [facility] [place] [facility] Address [address] [place] [address] Care Team Providers Care Porcelain Enamel Laborer Name Role Phone Orin Rboerson MD Primary Care Provider Allergies Active Allergy [...] (two) times a day 03/12/20 21 Active simvastatin (ZOCOR) 20 mg tablet [...] total) by mouth daily 03/10/20 24 Active vit P-P-kuznfy-zin c-lutein 226-90-0.8-5 mg capsule Take by mouth Activ e aspirin 81 mg enteric coated tablet Take 1 tablet (81 mg total) by mouth daily Active primidone (MYSOLINE) 50 mg tabletIndicati ons:Essential tremor TAKE 2 TABLETS BY MOUTH NIGHTLY 180 tablet 05/12/20 25 Active Active Problems Problem Noted Date Diagnosed Date [...] Medical History Date Comments colocn cancer Diabetes Hypertension High cholesterol Asthma 1985 Cataract 2017 Heart murmur Anxiety 2020 Osteoporosis 2021 Sleep [...] Most Recently Relevant to Health Maintenance Insurance [facility] MEDICARE ADVANTAGE [facility] Address: [facility] [address] [place] [address] Care Teams Porcelain Enamel Laborer Relationship Specialty Start Date End Date Orin Roberson MD [address] [facility] [address] [address] PCP - General Family Practice 03/16/24
--- OUTSIDE RECORDS SUMMARY | 2025-06-13 14:06 | XMS_ITS | Clinical Summary ---
Author Organization [facility] Address [address] [place] [address] Care Team Providers Care Mechanical Designer Name Role Phone Orin Roberson MD Primary [...] on file Legal Sex Female 12:27 PM WEB PRODUCTION MANAGER Gender Identity Not on file Sexual Orientation [...] Tdap) 10/26/2022 10/26/2012 COVID-19 Vaccine ( season) 2025 12/24/2021, 06/18/2021, 11/19/2020, Additional history exists RSV [...] complete this topic Insurance [employer] Care Teams Mechanical Designer Relationship Specialty Start Date End Date Orin Roberson MD [address] [place] [address] PCP - General FAMILY PRACTICE 01/26/22
[2025-06-13 19:44] LABS: MALB Creatinine Ratio < 28.3 mg/g (0-30)
== END 2025-06-13 13:55 | disposition home or self-care (01) ==
LOC: ANHGOSHLAB 13:54
PROVIDERS: PCP Family Medicine; Visit Provider Family Medicine
DX: E11.9 Type 2 diabetes mellitus without complications (principal)
CPT/HCPCS: 82043

== ENCOUNTER 2025-06-19 01:28 | Day surgery (SDC) | payer MEDICARE, SELFPAY ==
[2025-06-14 14:57] VITALS: BMI 25.4
--- OUTSIDE RECORDS SUMMARY | 2025-06-19 01:32 | XMS_ITS | Clinical Summary ---
Author Organization [facility] [place] [facility] Address [address] [place] [address] Care Team Providers Care Engraver Set Up Operator Name Role Phone Orin Roberson MD [...] by mouth daily 03/10/20 24 Active vit O-A-kkdllw-zin c-lutein 226-90-0.8-5 mg capsule Take by mouth [...] Most Recently Relevant to Health Maintenance Insurance [facility] MEDICARE ADVANTAGE [facility] Address: [facility] [address] [place] [address] Care Teams Engraver Set Up Operator Relationship Specialty Start Date End Date Orin Roberson MD [address] [facility] [address] [address] PCP - General Family Practice 03/16/24
--- OUTSIDE RECORDS SUMMARY | 2025-06-19 01:32 | XMS_ITS | Clinical Summary ---
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
[2025-06-19 08:16] VITALS: BP 128/68; PULSE 73; RESP 16; TEMP 36.3; O2SAT 100; BMI 25.0
[2025-06-19] MEDS: LACTATED RINGERS 1,000 ML 150 ML IV CONT (08:28)
--- NOTE | 2025-06-19 08:56 | PM.IMHP ---
H&P: HPI History of Present Illness Date/Time: 06/19/25 08:56 Chief Complaint: History of colon cancer Narrative: the patient was found to have a colo rectal cancer in 2012, undergoing resection of part of her left colon. Her last colonoscopy was in 2021, finding no polyps, however the prep was suboptimal. She is here for her surveillance colonoscopy. Review of Systems Review of Systems: All systems reviewed & are unremarkable except as noted in HPI and below PMFSH Past Medical History Medical History History of stroke Benign essential tremor History of stroke without residual deficits 01/13: MRI of the brain shows Focal chronic infarct in the right basal ganglia/right periventricular white matter. Bilateral carotid artery stenosis Obstructive sleep apnea Osteoporosis Diabetic peripheral neuropathy GERD without esophagitis Anxiety Mild aortic stenosis Hypokalemia History of colon cancer (~2012) Environmental allergies Dyslipidemia Asthma Cancer, colon 2012 Cataracts, bilateral 2018 Diabetes HTN (hypertension) Surgical History Surgical History History of incisional hernia repair x2 - 06/2013 and 07/2015 History of tonsillectomy History of partial colectomy 06/2013 Hx of cataract surgery Hx of hysterectomy 1996 Family History Family History Mother Family history of Parkinson's disease, Onset Age: 72 Cerebrovascular accident Diabetes mellitus Hypertension Father Carcinoma of colon, Onset Age: 40 Family history of primary malignant neoplasm of liver, Onset Age: 40 Other Family history of lymphoma Social History Social History Social History: Caffeine-coffee Smoking status: Never smoker Second hand tobacco smoke exposure: No Alcohol intake: never Substance use: never Substance use type: does not use Do You Feel Safe in your Home?: Yes Lack of Transportation: No Lack of Food: Never True Current Housing: I Have Housing Concerned About Future Housing: No Difficulty Paying Gas/Electric Bills: No Difficulty Paying for Meds: No Currently Unemployed: No Education: High School Diploma/GED Difficulty w/ Childcare or Family Care: No Living arrangements: with family Occupation/Education: retired Gender identity (if verbalized by the patient): Female Sexual Orientation (if Verbalized by the Patient): Straight or Heterosexual Spiritual care concerns: No Meds Home Medications and Allergies Home Medications ?Medication ?Instructions ?Recorded ?Confirmed ?Type ascorbic acid (vitamin C) 500 mg 500 mg PO DAILY 08/26/19 06/19/25 History tablet,extended release (Vitamin C With Marilu Hips) calcium carbonate (Calcium 600) 600 mg PO DAILY 08/26/19 06/19/25 History cod liver oil 1 cap PO DAILY 08/26/19 06/19/25 History cyanocobalamin (vitamin B-12) 500 500 mcg PO DAILY 08/26/19 06/19/25 History mcg tablet (Vitamin B-12) omega-3 fatty acids 1,000 mg 1,000 mg PO DAILY 08/26/19 06/19/25 History capsule lancets 33 gauge (BD Ultra Fine #100 ea 10/17/19 06/13/25 Rx Lancets) CPAP and supplies #1 ea 05/12/23 06/13/25 Rx azelastine 137 mcg (0.1 %) nasal 1 spray intranasal Q12H #30 mL 10/02/23 06/19/25 Rx spray glucose 4 gram chewable tablet 4 g PO Q15M PRN hypoglycemia #30 07/19/24 06/14/25 Rx tabs lancets 30 gauge (OneTouch #100 ea 10/13/24 06/13/25 Rx UltraSoft 2 Lancet) fluticasone 250 mcg-salmeterol 50 1 inh inhalation BID #180 ea 12/09/24 06/19/25 Rx mcg/dose blistr powdr for inhalation (Wixela Inhub) aspirin 81 mg tablet,delayed 81 mg PO DAILY 12/20/24 06/19/25 History release (Adult Low Dose Aspirin) albuterol sulfate 2.5 mg/3 mL 2.5 mg (3 mL) inhalation Q4-6H PRN 04/11/25 06/14/25 Rx (0.083 %) solution for nebulization shortness of breath or wheezing #180 mL blood-glucose meter (Contour Next #1 ea 04/28/25 06/13/25 Rx EZ Meter kit) albuterol sulfate 90 mcg/actuation 2 puff inhalation Q4-6H PRN 05/02/25 06/14/25 Rx aerosol inhaler shortness of breath or wheezing #25.5 grams alendronate 70 mg tablet (Fosamax) 70 mg PO WEEKLY #12 tabs 05/02/25 06/19/25 Rx diltiazem HCl 120 mg 120 mg PO BID #180 caps 05/02/25 06/19/25 Rx capsule,extended release 12 hr escitalopram oxalate 20 mg tablet 20 mg PO DAILY #90 tabs 05/02/25 06/19/25 Rx (Lexapro) ferrous sulfate 325 mg (65 mg 325 mg PO DAILY #90 tabs 05/02/25 06/14/25 Rx iron) tablet hydrochlorothiazide 25 mg tablet 25 mg PO DAILY #90 tabs 05/02/25 06/19/25 Rx lisinopril 40 mg tablet 40 mg PO DAILY #90 tabs 05/02/25 06/19/25 Rx metformin 1,000 mg tablet 500 mg (1/2 x 1,000 mg) PO BID #50 05/02/25 06/19/25 Rx tabs montelukast 10 mg tablet 10 mg PO DAILY #90 tabs 05/02/25 06/19/25 Rx omeprazole 20 mg capsule,delayed 20 mg PO DAILY #90 caps 05/02/25 06/19/25 Rx release potassium chloride 10 mEq 10 meq PO DAILY #90 tabs 05/02/25 06/19/25 Rx tablet,extended release(part/cryst) (Klor-Con M) simvastatin 20 mg tablet 20 mg PO QHS #90 tabs 05/02/25 06/19/25 Rx tirzepatide 15 mg/0.5 mL 15 mg (0.5 mL) subcut WEEKLY #2 mL 05/02/25 06/14/25 Rx subcutaneous pen injector (Gerald) primidone 50 mg tablet 150 mg (3 x 50 mg) PO QHS #270 tabs 05/08/25 06/19/25 Rx blood sugar diagnostic (Contour #300 ea 05/24/25 06/13/25 Rx Next Test Strips) gabapentin 600 mg tablet 300 mg PO DAILY 06/14/25 06/19/25 History Allergies Allergy/AdvReac Type Severity Reaction Status Date / Time adhesive Allergy Intermediate SURGICAL Verified 06/19/25 08:14 TAPE Cephalosporins Allergy Intermediate RASH AND Verified 06/19/25 08:14 ITCHING clarithromycin Allergy Intermediate RASH AND Verified 06/19/25 08:14 ITCHING doxycycline Allergy Intermediate RASH Verified 06/19/25 08:14 erythromycin base Allergy Intermediate RASH AND Verified 06/19/25 08:14 ITCHING ciprofloxacin Allergy Unknown RASH/ITICHI Verified 06/19/25 08:14 NG Penicillins Allergy Unknown HIVES Verified 06/19/25 08:14 tetracycline Allergy Unknown RASH Verified 06/19/25 08:14 RESPIRATIORY ISSUES ibuprofen Allergy Rash Verified 06/19/25 08:14 Vital Signs Vital Signs - 24 hr 06/19/25 08:16 Temperature 97.3 F L Pulse Rate 73 Respiratory Rate 16 Blood Pressure 128/68 Pulse Oximetry 100 Oxygen Delivery Room Air Exam Const: General: cooperative and healthy appearing Resp: Effort & Inspection: normal respiratory effort and able to speak in complete sentences Auscultation: clear to auscultation bilaterally Cardio: Rate: regular rate Rhythm: regular rhythm GI: Inspection: normal to inspection GI Palp: No No hepatosplenomegaly present Auscultation: normal bowel sounds Rectal Exam: deferred Skin: General skin exam: normal color Psych: Appearance: grossly normal Mental Status: mental status grossly normal Assessment and Plan Assessment and plan (1) History of colon cancer: Onset Date: ~2012 Code(s): Z85.038 - Personal history of other malignant neoplasm of large intestine Status: Acute Assessment and Plan: The patient is deemed a good candidate for the procedure. Consent signed. Will proceed.
--- NOTE | 2025-06-19 09:00 | WPDANESEPPF ---
Anes - Initial Pre Proc Eval Procedure: Operation Date: 06/19/25 09:30 Proposed Procedures p Diagnostic Colonoscopy - Yobany Schulte MD Date/Time: 06/19/25 09:00 Surgeon: Yobany Schulte MD Pre Op Diagnosis: Iron deficiency anemia, unspecified Patient Data Age: 75 Gender: F Height: 1.55 m Weight: 60 kg Last Vital Signs Temp 97.3 F L 06/19/25 08:16 Pulse 73 06/19/25 08:16 Resp 16 06/19/25 08:16 BP 128/68 06/19/25 08:16 Pulse Ox 100 06/19/25 08:16 O2 Del Method Room Air 06/19/25 08:16 Allergies Allergy/AdvReac Type Severity Reaction Status Date / Time adhesive Allergy Intermediate SURGICAL Verified 06/19/25 08:14 TAPE Cephalosporins Allergy Intermediate RASH AND Verified 06/19/25 08:14 ITCHING clarithromycin Allergy Intermediate RASH AND Verified 06/19/25 08:14 ITCHING doxycycline Allergy Intermediate RASH Verified 06/19/25 08:14 erythromycin base Allergy Intermediate RASH AND Verified 06/19/25 08:14 ITCHING ciprofloxacin Allergy Unknown RASH/ITICHI Verified 06/19/25 08:14 NG Penicillins Allergy Unknown HIVES Verified 06/19/25 08:14 tetracycline Allergy Unknown RASH Verified 06/19/25 08:14 RESPIRATIORY ISSUES ibuprofen Allergy Rash Verified 06/19/25 08:14 Home Medications ?Medication ?Instructions ?Recorded ?Confirmed ?Type ascorbic acid (vitamin C) 500 mg 500 mg PO DAILY 08/26/19 06/19/25 History tablet,extended release (Vitamin C With Marilu Hips) calcium carbonate (Calcium 600) 600 mg PO DAILY 08/26/19 06/19/25 History cod liver oil 1 cap PO DAILY 08/26/19 06/19/25 History cyanocobalamin (vitamin B-12) 500 500 mcg PO DAILY 08/26/19 06/19/25 History mcg tablet (Vitamin B-12) omega-3 fatty acids 1,000 mg 1,000 mg PO DAILY 08/26/19 06/19/25 History capsule lancets 33 gauge (BD Ultra Fine #100 ea 10/17/19 06/13/25 Rx Lancets) CPAP and supplies #1 ea 05/12/23 06/13/25 Rx azelastine 137 mcg (0.1 %) nasal 1 spray intranasal Q12H #30 mL 10/02/23 06/19/25 Rx spray glucose 4 gram chewable tablet 4 g PO Q15M PRN hypoglycemia #30 07/19/24 06/14/25 Rx tabs lancets 30 gauge (OneTouch #100 ea 10/13/24 06/13/25 Rx UltraSoft 2 Lancet) fluticasone 250 mcg-salmeterol 50 1 inh inhalation BID #180 ea 12/09/24 06/19/25 Rx mcg/dose blistr powdr for inhalation (Wixela Inhub) aspirin 81 mg tablet,delayed 81 mg PO DAILY 12/20/24 06/19/25 History release (Adult Low Dose Aspirin) albuterol sulfate 2.5 mg/3 mL 2.5 mg (3 mL) inhalation Q4-6H PRN 04/11/25 06/14/25 Rx (0.083 %) solution for nebulization shortness of breath or wheezing #180 mL blood-glucose meter (Contour Next #1 ea 04/28/25 06/13/25 Rx EZ Meter kit) albuterol sulfate 90 mcg/actuation 2 puff inhalation Q4-6H PRN 05/02/25 06/14/25 Rx aerosol inhaler shortness of breath or wheezing #25.5 grams alendronate 70 mg tablet (Fosamax) 70 mg PO WEEKLY #12 tabs 05/02/25 06/19/25 Rx diltiazem HCl 120 mg 120 mg PO BID #180 caps 05/02/25 06/19/25 Rx capsule,extended release 12 hr escitalopram oxalate 20 mg tablet 20 mg PO DAILY #90 tabs 05/02/25 06/19/25 Rx (Lexapro) ferrous sulfate 325 mg (65 mg 325 mg PO DAILY #90 tabs 05/02/25 06/14/25 Rx iron) tablet hydrochlorothiazide 25 mg tablet 25 mg PO DAILY #90 tabs 05/02/25 06/19/25 Rx lisinopril 40 mg tablet 40 mg PO DAILY #90 tabs 05/02/25 06/19/25 Rx metformin 1,000 mg tablet 500 mg (1/2 x 1,000 mg) PO BID #50 05/02/25 06/19/25 Rx tabs montelukast 10 mg tablet 10 mg PO DAILY #90 tabs 05/02/25 06/19/25 Rx omeprazole 20 mg capsule,delayed 20 mg PO DAILY #90 caps 05/02/25 06/19/25 Rx release potassium chloride 10 mEq 10 meq PO DAILY #90 tabs 05/02/25 06/19/25 Rx tablet,extended release(part/cryst) (Klor-Con M) simvastatin 20 mg tablet 20 mg PO QHS #90 tabs 05/02/25 06/19/25 Rx tirzepatide 15 mg/0.5 mL 15 mg (0.5 mL) subcut WEEKLY #2 mL 05/02/25 06/14/25 Rx subcutaneous pen injector (Mounjaro) primidone 50 mg tablet 150 mg (3 x 50 mg) PO QHS #270 tabs 05/08/25 06/19/25 Rx blood sugar diagnostic (Contour #300 ea 05/24/25 06/13/25 Rx Next Test Strips) gabapentin 600 mg tablet 300 mg PO DAILY 06/14/25 06/19/25 History Laboratory Tests 06/19/25 08:20 POC Capillary Glucose 76 mg/dl (65-105) Patient hx anesthesia problems: none Family hx anesthesia problems: none Results Review: All pre-operative results and documents have been reviewed as part of the pre-operative evaluation. [facility] Past Medical History Medical History History of stroke Benign essential tremor History of stroke without residual deficits 01/13: MRI of the brain shows Focal chronic infarct in the right basal ganglia/right periventricular white matter. Bilateral carotid artery stenosis Obstructive sleep apnea Osteoporosis Diabetic peripheral neuropathy GERD without esophagitis Anxiety Mild aortic stenosis Hypokalemia History of colon cancer (~2012) Environmental allergies Dyslipidemia Asthma Cancer, colon 2012 Cataracts, bilateral 2018 Diabetes HTN (hypertension) Surgical History Surgical History History of incisional hernia repair x2 - 06/2013 and 07/2015 History of tonsillectomy History of partial colectomy 06/2013 Hx of cataract surgery Hx of hysterectomy 1996 Family History Family History Mother Family history of Parkinson's disease, Onset Age: 72 Cerebrovascular accident Diabetes mellitus Hypertension Father Carcinoma of colon, Onset Age: 40 Family history of primary malignant neoplasm of liver, Onset Age: 40 Other Family history of lymphoma Social History Social History Social History: Caffeine-coffee Smoking status: Never smoker Second hand tobacco smoke exposure: No Alcohol intake: never Substance use: never Substance use type: does not use Do You Feel Safe in your Home?: Yes Lack of Transportation: No Lack of Food: Never True Current Housing: I Have Housing Concerned About Future Housing: No Difficulty Paying Gas/Electric Bills: No Difficulty Paying for Meds: No Currently Unemployed: No Education: High School Diploma/GED Difficulty w/ Childcare or Family Care: No Living arrangements: with family Occupation/Education: retired Gender identity (if verbalized by the patient): Female Sexual Orientation (if Verbalized by the Patient): Straight or Heterosexual Spiritual care concerns: No Anes - Eval Final PreProcedure Day of Procedure 06/19/25 09:00 Patient weight: obese Lungs: normal air movement Airway: Mallampati scale class II Neurological: alert and oriented Last oral intake: >/= 8 hours ASA classification: III Emergent: no Anesthetic plan: proceed Anesthesia type and monitoring: general GIVS and standard monitoring Results Review: All pre-operative results and documents have been reviewed as part of the pre-operative evaluation. HTN, hyperlipidemia, GABRIELA on CPAP, DM fsbs 76, active without cp or sob. Informed Consent: The patient's anesthetic plan and its attendant risks and benefits were discussed with the patient/family/POA. Questions were solicited and answers provided to the satisfaction of the patient/family/POA.
[2025-06-19 09:42] VITALS: BP 109/55; PULSE 75; RESP 23; O2SAT 100
[2025-06-19 09:52] VITALS: BP 105/61; PULSE 75; RESP 17; O2SAT 100
[2025-06-19 10:02] VITALS: BP 121/69; PULSE 69; RESP 17; O2SAT 100
== END 2025-06-19 10:07 | disposition home or self-care (01) ==
PROVIDERS: PCP Family Medicine; Referring Provider Internal Medicine Gastroenterology; Visit Provider Internal Medicine Gastroenterology
PROC: 0DJD8ZZ Inspection of Lower Intestinal Tract, Via Natural or Artificial Opening Endoscopic (ICD-10-PCS; CPT 45378; principal; 2025-06-19 09:30)
DX: Z12.11 Encounter for screening for malignant neoplasm of colon (principal); D12.3 Benign neoplasm of transverse colon; E78.5 Hyperlipidemia, unspecified; I10 Essential (primary) hypertension; E11.42 Type 2 diabetes mellitus with diabetic polyneuropathy; K21.9 Gastro-esophageal reflux disease without esophagitis; G47.33 Obstructive sleep apnea (adult) (pediatric); J45.909 Unspecified asthma, uncomplicated; M81.0 Age-related osteoporosis without current pathological fracture; F41.9 Anxiety disorder, unspecified; E87.6 Hypokalemia; G25.0 Essential tremor; E66.9 Obesity, unspecified; Z68.25 Body mass index [BMI] 25.0-25.9, adult; Z79.51 Long term (current) use of inhaled steroids; Z79.82 Long term (current) use of aspirin; Z79.83 Long term (current) use of bisphosphonates; Z79.84 Long term (current) use of oral hypoglycemic drugs; Z79.85 Long-term (current) use of injectable non-insulin antidiabetic drugs; Z99.89 Dependence on other enabling machines and devices; Z98.890 Other specified postprocedural states; Z90.49 Acquired absence of other specified parts of digestive tract; Z86.79 Personal history of other diseases of the circulatory system; Z85.038 Personal history of other malignant neoplasm of large intestine; Z86.73 Personal history of transient ischemic attack (TIA), and cerebral infarction without residual deficits; Z80.0 Family history of malignant neoplasm of digestive organs
CPT/HCPCS: 45385; 82948; J2003; J2704; J7120